=== PATIENT | female | born 1980 | race Hispanic/Latino ===

== ENCOUNTER 2020-12-06 04:10 | Emergency (ER) | payer SELFPAY ==
[2020-12-06 04:42] LABS: Absolute Lymphocytes (CBC) 7.1 K/uL (0.7-4.9); Basophils % 0.5 % (0-1.3); Hematocrit 37.5 % (36.0-45.0); Lymphocytes % 59.3 % (15.3-44.8); MPV 9.3 fL (7.6-11.3); RBC Red Blood Cell Count 3.92 M/uL (3.86-4.86)
[2020-12-06] MEDS ORDERED: TETANUS & DIPHTHERIA TOX,ADULT 0.5 ML VIAL ONE (04:50)
[2020-12-06] MEDS ORDERED: MORPHINE 4 MG/ML SYR ONE (04:50)
[2020-12-06] MEDS ORDERED: CEFAZOLIN/SWI 1gm 2 GM/20 ML SYR ONE (04:50)
[2020-12-06] MEDS ORDERED: ONDANSETRON 4 MG/2 ML VIAL ONE (04:50)
[2020-12-06 04:52] LABS: Potassium 3.3 mmol/L (3.5-5.1)
[2020-12-06 05:20] LABS: Blood Morphology Comment NOT SEEN (NOT SEEN); Platelet Estimate ADEQ
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
[2020-12-06 07:41] VITALS: TEMP 98.1; O2SAT 98
[2020-12-06 07:43] VITALS: BP 119/69
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
== END 2020-12-06 07:37 | disposition short-term general hospital (02) ==
LOC: EDBD 04:10 → EDSEX 04:10 → ER 04:10
DX: S01.80XA Unspecified open wound of other part of head, initial encounter (principal); S11.90XA Unspecified open wound of unspecified part of neck, initial encounter; S41.101A Unspecified open wound of right upper arm, initial encounter; X94.0XXA Assault by shotgun, initial encounter; Y93.9 Activity, unspecified; Y92.89 Other specified places as the place of occurrence of the external cause; Z23 Encounter for immunization
CPT/HCPCS: 36415; 70450; 70487; 70498; 71260; 76377; 80048; 85025; 90471; 90714; 96365; 96375; 99285; J0690; J2405; Q9967

== ENCOUNTER 2024-04-23 13:28 | Emergency (ER) | payer BC ==
--- OUTSIDE RECORDS SUMMARY | 2024-04-23 13:32 | XMS REPORT | Continuity of Care Document ---
Author Name Unknown Address [address] [facility] [address] [place] [address] [facility] thconnect Address [address] [facility] [address] [place] [address] Care Team Providers Care Proof Technician Name Role Phone Janelle Sky Primary Care Physician [phone] Medications Ordered Medication Name Filled Medication Name Start Date Stop Date Current Medication? Ordering Clinician Indication Dosage Frequency Signature (SIG) Comments Components Source RINSE MOUTH WITH 15ML (1 CAPFUL) FOR 30 SECONDS IN MORNING AND EVENING AFTER BRUSHING, THEN SPIT 03-24 00:00: 00 Yes John Stephens TAKE 1 TABLET BY MOUTH EVERY 6 HOURS WITH FOOD 03-24 00:00: 00 Yes John Stephens TAKE 1 CAPSULE BY MOUTH THREE TIMES A DAY 03-24 00:00: 00 Yes John Stephens Vital Signs Vital Name Observation Time Observation Value Comments S guevara BP Systolic 2024-04-16 11:14:00 120 mm[Hg] Tio Stephens BP Diastolic 2024-04-16 11:14:00 79 mm[Hg] Prashanth Stephens Weight Measured 2024-04-16 11:14:00 164.40 pounds John Stephens Height Measured 2024-04-16 11:14:00 61.00 inches John Stephens Body Temperature 2024-04-16 11:14:00 98.20 degrees John Stephens Heart Rate 2024-04-16 11:14:00 86.00 /min Vianey Stephens Respiratory Rate 2024-04-16 11:14:00 16.00 /min John F Angelo Height Measured 2024-02-22 15:34:00 61.00 inches John F Angelo Body Temperature 2024-02-22 15:34:00 98.00 degrees John F Angelo Heart Rate 2024-02-22 15:34:00 87.00 /min Vianey en F Angelo Respiratory Rate 2024-02-22 15:34:00 19.00 /min John F Angelo BP Systolic 2024-02-22 15:34:00 122 mm[Hg] Step hen F Angelo BP Diastolic 2024-02-22 15:34:00 79 mm[Hg] Prashanth phen F Angelo Weight Measured 2024-02-22 15:34:00 162.60 pounds John F Angelo BP Systolic 2023-09-09 14:37:00 126 mm[Hg] Step hen F Angelo BP Diastolic 2023-09-09 14:37:00 64 mm[Hg] Prashanth phen F Angelo Weight Measured 2023-09-09 14:37:00 157.40 pounds John F Angelo Height Measured 2023-09-09 14:37:00 61.00 inches John F Angelo Body Temperature 2023-09-09 14:37:00 98.40 degrees John F Angelo Heart Rate 2023-09-09 14:37:00 83.00 /min Vianey en F Angelo Respiratory Rate 2023-09-09 14:37:00 19.00 /min John F Angelo Respiratory Rate 2023-07-29 14:01:00 John F Angelo BP Systolic 2023-07-29 14:01:00 121 mm[Hg] Step hen F Angelo BP Diastolic 2023-07-29 14:01:00 77 mm[Hg] Prashanth phen F Angelo Weight Measured 2023-07-29 14:01:00 156.80 pounds John F Angelo Height Measured 2023-07-29 14:01:00 61.00 inches John F Angelo Body Temperature 2023-07-29 14:01:00 97.30 degrees John F Angelo Heart Rate 2023-07-29 14:01:00 74.00 /min Vianey en F Angelo BP Systolic 2023-06-03 17:00:00 116 mm[Hg] Step hen F Angelo BP Diastolic 2023-06-03 17:00:00 76 mm[Hg] Prashanth phen F Angelo Weight Measured 2023-06-03 17:00:00 154.00 pounds John F Angelo Height Measured 2023-06-03 17:00:00 61.00 inches John F Angelo Body Temperature 2023-06-03 17:00:00 98.20 degrees John F Angelo Heart Rate 2023-06-03 17:00:00 74.00 /min Vianey en F Angelo Respiratory Rate 2023-06-03 17:00:00 18.00 /min John F Angelo BP Systolic 2022-04-24 11:06:00 121 mm[Hg] Step hen F Angelo BP Diastolic 2022-04-24 11:06:00 84 mm[Hg] Prashanth phen F Angelo Weight Measured 2022-04-24 11:06:00 157.60 pounds John F Angelo Height Measured 2022-04-24 11:06:00 61.00 inches John F Angelo Body Temperature 2022-04-24 11:06:00 98.10 degrees John F Angelo Heart Rate 2022-04-24 11:06:00 85.00 /min Vianey en F Angelo Respiratory Rate 2022-04-24 11:06:00 18.00 /min John F Angelo BP Systolic 2022-02-10 08:42:00 133 mm[Hg] Step hen F Angelo BP Diastolic 2022-02-10 08:42:00 85 mm[Hg] Prashanth phen F Angelo Weight Measured 2022-02-10 08:42:00 156.80 pounds John F Angelo Height Measured 2022-02-10 08:42:00 61.00 inches John F Angelo Body Temperature 2022-02-10 08:42:00 98.40 degrees John F Angelo Heart Rate 2022-02-10 08:42:00 82.00 /min Vianey en F Angelo Respiratory Rate 2022-02-10 08:42:00 16.00 /min John F Angelo BP Systolic 2022-01-15 10:06:00 126 mm[Hg] Step hen F Angelo BP Diastolic 2022-01-15 10:06:00 85 mm[Hg] Prashanth phen F Angelo Weight Measured 2022-01-15 10:06:00 152.60 pounds John F Angelo Height Measured 2022-01-15 10:06:00 61.00 inches John Stephens Body Temperature 2022-01-15 10:06:00 98.40 degrees John Stephens Heart Rate 2022-01-15 10:06:00 78.00 /min Vianey Stephens Respiratory Rate 2022-01-15 10:06:00 16.00 /min John Stephens Encounters Start Date/Time End Date/Time Encounter Type Admission Type Attending [facility] Care Department Encounter ID Source 2024-04-16 11:07:21 2024-04-16 11:07:21 Outpatient [facility]FA [facility] [id number] John Stephens 2024-04-16 00:00:00 2024-04-16 00:00:00 Outpatient Visit [facility] [id number] John Stephens 2024-02-22 15:21:37 2024-02-22 15:21:37 Outpatient [facility] [id number] John Stephens 2024-02-22 00:00:00 2024-02-22 00:00:00 Outpatient Visit [facility] [id number] John Stephens 2023-09-09 14:31:10 2023-09-09 14:31:10 Outpatient [facility] [id number] John Stephens 2023-07-29 15:24:12 2023-07-29 15:24:12 Outpatient [facility] [id number] John Stephens 2023-06-03 16:50:39 2023-06-03 16:50:39 Outpatient [facility] [id number] John Stephens Results Test Description Test Time Test Comments Results Result Co mments Source HIV 1/2 4TH GEN, RFLX [id number] 05:19:16* Test Item Value Reference Range Interpretation Comme nts HIV 1/2 4TH GEN, RFLX CONF ( test code = 3514) NON-REACTIVE NON-REACTIVE HEPATITIS PANEL, [id number] 05:19:16* Test Item Value Reference Range Interpretation Comme nts HEPATITIS A IgM (test code = 33656) NON-REACTIVE NON-REACTIVE HEPATITIS B CORE IgM (test code = 4644) NON-REACTIVE NON-REACTIVE HEPATITIS B SURF AG (test code = 2739) NON-REACTIVE NON-REACTIVE HEPATITIS C ANTIBODY (test code = 4675) NON-REACTIVE NON-REACTIVE INTERPRETATION HEPATITIS A: (test code = 2552) (NOTE) Hepatitis A serology shows no evidence of acute hepatitis A. INTERPRETATION HEPATITIS B: (test code = 96730) (NOTE) Hepatitis B serology shows no evidence of acute hepatitis B andno indication of exposure to hepatitis B virus in the previous se eight months. INTERPRETATION HEPATITIS C: (test code = 94610) (NOTE) Hepatitis C serology shows no evidence of exposure to hepatitisC virus at this time. It can take up to 12 months after exposure tothe hepatitis C virus for antibodies to become detectable in the blood in certain patients. RPR REFLEX TO T. PALLIDUM - [id number] 04:41:52* Test Item Value Reference Range Interpretation Comme nts RPR (test code = 43563) NON-REACTIVE NON-REACTIVE RPR TITER (test code = 3500) NOT INDIC. TITER NOT INDIC. ACUTE HEPATITIS [id number] 00:00:00* Test Item Value Reference Range Interpretation Comme nts HEPATITIS A IgM (test code = 03767) NON-REACTIVE HEPATITIS B CORE IgM (test c ode = 4644) NON-REACTIVE HEPATITIS B SURF AG (test co de = 2739) NON-REACTIVE HEPATITIS C ANTIBODY (test c ode = 4675) NON-REACTIVE INTERPRETATION HEPATITIS A: (test code = 2552) (NOTE) INTERPRETATION HEPATITIS B: (test code = 64226) (NOTE) INTERPRETATION HEPATITIS C: (test code = 17120) (NOTE) John StephensCT/NG, NAAT, [id number] 00:00:00* Test Item Value Reference Range Interpretation Comme nts CHLAMYDIA, NAAT, URINE (test code = 66016) NEGATIVE GONORRHEA, NAAT, URINE (test code = 21762) NEGATIVE John StephensHIV 1/2 4TH GEN, RFLX [id number] 00:00:00* Test Item Value Reference Range Interpretation Comme nts HIV 1/2 4TH GEN, RFLX CONF ( test code = 3514) NON-REACTIVE John F AustinRPR REFLEX TO T. PALLIDUM - [id number] 00:00:00* Test Item Value Reference Range Interpretation Comme nts RPR (test code = 87464) NON-REACTIVE RPR TITER (test code = 3500) NOT INDIC. TITER John Gay AustinRPR REFLEX TO T. PALLIDUM - [id number] 00:00:00* Test Item Value Reference Range Interpretation Comme nts RPR (test code = 73490) NON-REACTIVE RPR TITER (test code = 3500) NOT INDIC. TITER John StephensACUTE HEPATITIS [id number] 00:00:00* Test Item Value Reference Range Interpretation Comme nts HEPATITIS A IgM (test code = 35207) NON-REACTIVE HEPATITIS B CORE IgM (test c ode = 4644) NON-REACTIVE HEPATITIS B SURF AG (test co de = 2739) NON-REACTIVE HEPATITIS C ANTIBODY (test c ode = 4675) NON-REACTIVE INTERPRETATION HEPATITIS A: (test code = 2552) (NOTE) INTERPRETATION HEPATITIS B: (test code = 83239) (NOTE) INTERPRETATION HEPATITIS C: (test code = 99566) (NOTE) John StephensCT/NG, TMA, [id number] 00:00:00* Test Item Value Reference Range Interpretation Comme nts CHLAMYDIA, NAAT, URINE (test code = 01458) NEGATIVE GONORRHEA, NAAT, URINE (test code = 72340) NEGATIVE John StephensHIV 1/2 4TH GEN, RFLX [id number] 00:00:00* Test Item Value Reference Range Interpretation Comme nts HIV 1/2 4TH GEN, RFLX CONF ( test code = 3514) NON-REACTIVE John Gay AustinRPR REFLEX TO T. PALLIDUM - [id number] 00:00:00* Test Item Value Reference Range Interpretation Comme nts RPR (test code = 12538) NON-REACTIVE RPR TITER (test code = 3500) NOT INDIC. TITER John StephensACUTE HEPATITIS [id number] 00:00:00* Test Item Value Reference Range Interpretation Comme nts HEPATITIS A IgM (test code = 40485) NON-REACTIVE HEPATITIS B CORE IgM (test c ode = 4644) NON-REACTIVE HEPATITIS B SURF AG (test co de = 2739) NON-REACTIVE HEPATITIS C ANTIBODY (test c ode = 4675) NON-REACTIVE INTERPRETATION HEPATITIS A: (test code = 2552) (NOTE) INTERPRETATION HEPATITIS B: (test code = 86581) (NOTE) INTERPRETATION HEPATITIS C: (test code = 02102) (NOTE) John Price/NG, TMA, [id number] 00:00:00* Test Item Value Reference Range Interpretation Comme nts CHLAMYDIA, NAAT, URINE (test code = 87283) NEGATIVE GONORRHEA, NAAT, URINE (test code = 85970) NEGATIVE John StephensHIV 1/2 4TH GEN, RFLX [id number] 00:00:00* Test Item Value Reference Range Interpretation Comme nts HIV 1/2 4TH GEN, RFLX CONF ( test code = 3514) NON-REACTIVE John Pineda Multi-cncr(5+35)2023-08-08 00:00:00* Test Item Value Reference Range Interpretation Comme nts Report Summary (test code = REPORT_SUMMARY) NEGATIVE Footnotes (test code = FOOTNOTES) See Notes PDF Report (test code = EMBEDDED_PDF) PDF John Pineda Multi-cncr(5+35)2023-08-08 00:00:00* Test Item Value Reference Range Interpretation Comme nts Report Summary (test code = REPORT_SUMMARY) NEGATIVE Footnotes (test code = FOOTNOTES) See Notes PDF Report (test code = EMBEDDED_PDF) PDF John StephensCOMPREHENSIVE METABOLIC [id number] 06:07:58* Test Item Value Reference Range Interpretation Comme nts GLUCOSE (test code = 2217) 91 MG/DL 70-99 BUN (test code = 2208) 14 MG/DL 6-20 CREATININE (test code = 2214) 0.81 MG/DL 0.60-1.30 eGFR (2020 CKD-EPI) (test code = 10302) 93 ML/MIN/1.73 >60 CALC BUN/CREAT (test code = 2235) 17 RATIO 6-28 SODIUM (test code = 223) 138 MEQ/L 133-146 POTASSIUM (test code = 2228) 3.7 MEQ/L 3.5-5.4 CHLORIDE (test code = 2215) 105 MEQ/L 95-107 CARBON DIOXIDE (test code = 2206) 23 MEQ/L 19-31 CALCIUM (test code = 2208) 9.0 MG/DL 8.5-10.5 PROTEIN, TOTAL (test code = 2228) 7.0 G/DL 6.1-8.3 ALBUMIN (test code = 1) 4.7 G/DL 3.5-5.2 CALC GLOBULIN (test code = 0) 2.3 G/DL 1.9-3.7 CALC A/G RATIO (test code = 2233) 2.0 RATIO 1.0-2.6 BILIRUBIN, TOTAL (test code = 2206) 0.5 MG/DL See_Comment [Automated me ssage] The system which generated this result transmitted reference range: <=1.2. The reference range was not used to interpret this result as normal/abnormal. ALKALINE PHOSPHATASE (test code = 2203) 50 U/L 40-113 AST (test code = 2217) 35 U/L 9-40 ALT (test code = 2218) 53 U/L 5-40 H LIPID [id number] 06:07:58* Test Item Value Reference Range Interpretation Comme nts CHOLESTEROL (test code = 0) 194 MG/DL <200 TRIGLYCERIDES (test code = 2) 93 MG/DL <150 HDL CHOLESTEROL (test code = 0) 87 MG/DL >39 CALC LDL CHOL (test code = 2236) 88 MG/DL <100 NOTE: CALCULATED LDL IS BASED ON JULISSA-LEVIN METHOD WHICHINCLUDES ADJUSTABLE TRIGLYCERIDE:VLDL CHOLESTEROL RATIO.THIS FACTOR VARIES BY MEASURED TRIGLYCERIDE AND NON-HDLCHOLESTEROL CONCENTRATIONS WITH INCREASED CALCULATED LDL SEENIN HIGHER TRIGLYCERIDE OR LOWER NON-HDL SPECIMENS. FOR MOREINFORMATION, SEE CLIENT ANNOUNCEMENT AT [email or web address] RISK RATIO LDL/HDL (test code = 2237) 1.01 RATIO <3.22 UNLESS OTHERW ISE INDICATED, ALL TESTING PERFORMED AT [facility] [address] [place] [id number] EXTERNAL RELATIONS MANAGER: CHERYL GRAY M.D. CLIA NUMBER [id number] [place]. [id number] HEMOGLOBIN [id number] 03:16:33* Test Item Value Reference Range Interpretation Comme nts HEMOGLOBIN A1c (test code = 45279) 5.0 % 4.2-5.6 COMPREHENSIVE METABOLIC [id number] 00:00:00* Test Item Value Reference Range Interpretation Comme nts GLUCOSE (test code = 2217) 91 MG/DL BUN (test code = 2208) 14 MG/DL CREATININE (test code = 2214) 0.81 MG/DL eGFR (2020 CKD-EPI) (test co de = 45155) 93 ML/MIN/1.73 CALC BUN/CREAT (test code = 2235) 17 RATIO SODIUM (test code = 2231) 138 MEQ/L POTASSIUM (test code = 2228) 3.7 MEQ/L CHLORIDE (test code = 2215) 105 MEQ/L CARBON DIOXIDE (test code = 2206) 23 MEQ/L CALCIUM (test code = 2209) 9.0 MG/DL PROTEIN, TOTAL (test code = 2229) 7.0 G/DL ALBUMIN (test code = 2201) 4.7 G/DL CALC GLOBULIN (test code = 2240) 2.3 G/DL CALC A/G RATIO (test code = 2234) 2.0 RATIO BILIRUBIN, TOTAL (test code = 2207) 0.5 MG/DL ALKALINE PHOSPHATASE (test code = 2204) 50 U/L AST (test code = 2218) 35 U/L ALT (test code = 2219) 53 U/L John StephensLIPID [id number] 00:00:00* Test Item Value Reference Range Interpretation Comme nts CHOLESTEROL (test code = 2210) 194 MG/DL TRIGLYCERIDES (test code = 2232) 93 MG/DL HDL CHOLESTEROL (test code = 2220) 87 MG/DL CALC LDL CHOL (test code = 2237) 88 MG/DL RISK RATIO LDL/HDL (test cod e = 2238) 1.01 RATIO John StephensHEMOGLOBIN [id number] 00:00:00* Test Item Value Reference Range Interpretation Comme nts HEMOGLOBIN A1c (test code = 35154) 5.0 % John StephensCOMPREHENSIVE METABOLIC [id number] 00:00:00* Test Item Value Reference Range Interpretation Comme nts GLUCOSE (test code = 2217) 91 MG/DL BUN (test code = 2208) 14 MG/DL CREATININE (test code = 2214) 0.81 MG/DL eGFR (2020 CKD-EPI) (test co de = 46212) 93 ML/MIN/1.73 CALC BUN/CREAT (test code = 2235) 17 RATIO SODIUM (test code = 2231) 138 MEQ/L POTASSIUM (test code = 2228) 3.7 MEQ/L CHLORIDE (test code = 2215) 105 MEQ/L CARBON DIOXIDE (test code = 2206) 23 MEQ/L CALCIUM (test code = 2209) 9.0 MG/DL PROTEIN, TOTAL (test code = 2229) 7.0 G/DL ALBUMIN (test code = 2201) 4.7 G/DL CALC GLOBULIN (test code = 2240) 2.3 G/DL CALC A/G RATIO (test code = 2234) 2.0 RATIO BILIRUBIN, TOTAL (test code = 2207) 0.5 MG/DL ALKALINE PHOSPHATASE (test code = 2204) 50 U/L AST (test code = 2218) 35 U/L ALT (test code = 2219) 53 U/L John StephensLIPID [id number] 00:00:00* Test Item Value Reference Range Interpretation Comme nts CHOLESTEROL (test code = 2210) 194 MG/DL TRIGLYCERIDES (test code = 2232) 93 MG/DL HDL CHOLESTEROL (test code = 2220) 87 MG/DL CALC LDL CHOL (test code = 2237) 88 MG/DL RISK RATIO LDL/HDL (test cod e = 2238) 1.01 RATIO John StephensHEMOGLOBIN [id number] 00:00:00* Test Item Value Reference Range Interpretation Comme nts HEMOGLOBIN A1c (test code = 80284) 5.0 % John StephensSCR MAMM BILATERAL JARROD CAD [id number] 11:07:51 Name: Amanda : 1980 Sex: F - SCR MAMM BILATERAL JARROD CAD DIGITALBILATERAL FIRST EVER DIGITAL SCREENING MAMMOGRAM 3D/2D WITH CAD: 05/16/2022LINICAL: Asymptomatic. Digitalbreast tomosynthesis was performed in addition to routine CC and MLO views. Current mammographic images were evaluated by [employer] Image[employer] CAD (computer-aided detection) software. No prior exams were available for comparison. The tissue of both breasts is heterogeneously dense. This may lower the sensitivity of mammography. There are benign calcifications in both breasts. No suspicious mass, architectural distortion, malignant type calcification, or lymph node abnormality detected. IMPRESSION: BENIGNThere is no mammographic evidence of malignancy. Resume annual screening mammography in one year. (05/17/2023) Rik Marie M.D. et/penrad:05/23/2022 11:07:51 Coiled Tubing Supervisor: Yaima Pathak MM, [facility] Mammographyletter sent: BIRADS 1-2 Normal Mammogram BI-RADS: 2 BenignPAP TEST, THINPREP, [id number] 12:56:42* Test Item Value Reference Range Interpretation Comme nts SOURCE: (test code = 8001) Cervical/Endoc ervical SLIDES: (test code = 8011) 1 LMP: (test code = 8021) 04/04/2022 SPECIMEN ADEQUACY: (test code = 44742) (NOTE) Satisfactory for evaluation. Endocervical cells/transformation zone component not identified. INTERPRETATION: (test code = 11018) NILM/NO EPITH. ABNORMALITY;SE E BELOW ---- NEGATIVE FOR INTRAEPITHELIAL LESION OR MALIGNANCY (NILM) - CANDY MAKER : (test code = 8101) [facility] LOCATION: (test code = 71813) (NOTE) Specimens proces sed and interpreted at [facility], [address] [place] [address], , CLIA: [id number] CPT: (test code = 8140) (NOTE) [address] UNLESS OTH ERWISE INDICATED, COMPUTER AIDED AND CANDY MAKER SCREENING PERFORMED. The Pap test is a screening test with an inherent, but low probability of error. Your patient should be reminded to consult you immediately if she experiences any suspicious signs or symptoms, regardless of her Pap test result. An alternate report format containing images or consolidated prior Pap history is available as applicable. PAP TEST, THINPREP, [id number] 00:00:00* Test Item Value Reference Range Interpretation Comme nts SOURCE: (test code = 8001) Cervical/Endocervical SLIDES: (test code = 8011) 1 LMP: (test code = 8021) 04/04/2022 SPECIMEN ADEQUACY: (test code = 56728) (NOTE) INTERPRETATION: (test code = 97616) NILM/NO EPITH. ABNORMALITY;SEE BELOW CANDY MAKER: (test code = 8101) [facility] LOCATION: (test code = 34747) (NOTE) CPT: (test code = 8140) (NOTE) John StephensPAP TEST, THINPREP, [id number] 00:00:00* Test Item Value Reference Range Interpretation Comme nts SOURCE: (test code = 8001) Cervical/Endocervical SLIDES: (test code = 8011) 1 LMP: (test code = 8021) 04/04/2022 SPECIMEN ADEQUACY: (test code = 52469) (NOTE) INTERPRETATION: (test code = 99013) NILM/NO EPITH. ABNORMALITY;SEE BELOW CANDY MAKER: (test code = 8101) [facility] LOCATION: (test code = 97937) (NOTE) CPT: (test code = 8140) (NOTE) John Gay AngeloCT/NG, NAAT, [id number] 18:31:17* Test Item Value Reference Range Interpretation Comme nts GONORRHEA, NAAT (test code = 22041) NEGATIVE NEGATIVE IMPORTANT NO IMAN: SEE ANNOUNCEMENT AT [email or web address] Note: Assay methodology is nucleic acid amplification by flat folding machine operator mediated amplification (TMA) utilizing the Aptima Combo 2 Assay. CHLAMYDIA, NAAT (test code = 06439) NEGATIVE NEGATIVE IMPORTANT NO IMAN: SEE ANNOUNCEMENT AT [email or web address] Note: Assay methodology is nucleic acid amplification by flat folding machine operator mediated amplification (TMA) utilizing the Aptima Combo 2 Assay. HPV HIGH RISK WITH GENOTYPE, [id number] 14:47:45* Test Item Value Reference Range Interpretation Comme nts HPV HIGH RISK INTERP (test code = 70253) NEGATIVE NEGATIVE HPV 16 (test code = 12638) NEGATIVE HPV 18 (test code = 98679) NEGATIVE HPV, HR, OTHER GENOTYPES (test code = 04859) NEGATIVE Testing methodol ogy is real-time PCR utilizing hydrolysis probes with the Lubna Penny 4800 system. The test individually detects genotypes 16 and 18, as well as the other 12 high risk types (31,33,35,39,45,51,52,56 ,58,59,66,68). The expected result is negative. A negative result does not rule out the presence of HPV not included in the genotype set, a low level of infection or specimen sampling error. UNLESS OTHERWISE INDICATED, ALL TESTING PERFORMED [facility] [address] [place] [address] EXTERNAL RELATIONS MANAGER: MARIA CASTRO M.D. CLIA NUMBER [id number] [place] [id number] VAGINAL PATHOGENS DNA [id number] 13:21:53* Test Item Value Reference Range Interpretation Comme nts SANDIE SPECIES (test code = 79369) NEGATIVE NEGATIVE G. VAGINALIS (test code = 12427) NEGATIVE NEGATIVE T. VAGINALIS (test code = 39686) NEGATIVE NEGATIVE UNLESS OTHERWISE INDICATED, ALL TESTING PERFORMED [facility] [address] [place] [address] EXTERNAL RELATIONS MANAGER: MARIA CASTRO M.D. CLIA NUMBER [id number] [place]. [id number] 03:55:39* Test Item Value Reference Range Interpretation Comme nts RPR RESULT (test code = 3501) NON-REACTIVE NON-REACTIVE RPR TITER (test code = 3500) NOT INDIC. TITER NOT INDIC. [facility]SH + LH [id number] 03:31:03* Test Item Value Reference Range Interpretation Comme [facility] FOLLICLE STIM HORMONE (test code = 2700) 2.8 IU/L SEE BELOW EXPEC TREVON VALUES FOR FSH FOR FEMALES >17 YEARS MALES FEMALES >=18 YEARS 1.5-12.4 IU/L FOLLICULAR 3.5-12.5 IU/L MID-CYCLE PEAK 4.7-21.5 IU/L LUTEAL PHASE 1.7-7.7 IU/L POSTMENOPAUSAL 25.8-134.8 IU/L LUTEINIZING HORMONE (test code = 2776) 2.3 IU/L SEE BELOW EXPEC TREVON VALUES FOR LH FOR FEMALES >17 YEARS MALES FEMALES >=18 YEARS 1.8-8.6 IU/L FOLLICULAR 2.4-12.6 IU/L MID-CYCLE PEAK 14.0-95.6 IU/L LUTEAL PHASE 1.0-11.4 IU/L POSTMENOPAUSAL 7.7-58.5 IU/L HIV 1/2 4TH GEN, RFLX [id number] 03:25:43* Test Item Value Reference Range Interpretation Comme [facility] HIV 1/2 4TH GEN, RFLX CONF ( test code = 3514) NON-REACTIVE NON-REACTIVE HEPATITIS PANEL, [id number] 03:25:43* Test Item Value Reference Range Interpretation Comme [facility] HEPATITIS A IgM (test code = 90733) NON-REACTIVE NON-REACTIVE HEPATITIS B CORE IgM (test code = 4644) NON-REACTIVE NON-REACTIVE HEPATITIS B SURF AG (test code = 2739) NON-REACTIVE NON-REACTIVE HEPATITIS C ANTIBODY (test code = 4675) NON-REACTIVE NON-REACTIVE INTERPRETATION HEPATITIS A: (test code = 2552) (NOTE) Hepatitis A serology shows no evidence of acute hepatitis A. INTERPRETATION HEPATITIS B: (test code = 39175) (NOTE) Hepatitis B serology shows no evidence of acute hepatitis B andno indication of exposure to hepatitis B virus in the previous se eight months. INTERPRETATION HEPATITIS C: (test code = 14370) (NOTE) Hepatitis C serology shows no evidence of exposure to hepatitisC virus at this time. It can take up to 12 months after exposure tothe hepatitis C virus for antibodies to become detectable in the blood in certain patients. HPV HIGH RISK WITH GENOTYPE, [id number] 00:00:00* Test Item Value Reference Range Interpretation Comme nts HPV HIGH RISK INTERP (test c ode = 96937) NEGATIVE HPV 16 (test code = 41000) NEGATIVE HPV 18 (test code = 28165) NEGATIVE HPV, HR, OTHER GENOTYPES (te st code = 02247) NEGATIVE John StephensACUTE HEPATITIS [id number] 00:00:00* Test Item Value Reference Range Interpretation Comme nts HEPATITIS A IgM (test code = 42537) NON-REACTIVE HEPATITIS B CORE IgM (test c ode = 4644) NON-REACTIVE HEPATITIS B SURF AG (test co de = 2739) NON-REACTIVE HEPATITIS C ANTIBODY (test c ode = 4675) NON-REACTIVE INTERPRETATION HEPATITIS A: (test code = 2552) (NOTE) INTERPRETATION HEPATITIS B: (test code = 39435) (NOTE) INTERPRETATION HEPATITIS C: (test code = 75281) (NOTE) John StephensGC AND CHLAMYDIA, AMPLIFIED, [id number] 00:00:00* Test Item Value Reference Range Interpretation Comme nts GONORRHEA, NAAT (test code = 51973) NEGATIVE CHLAMYDIA, NAAT (test code = 11837) NEGATIVE John StephensFSH + LH [id number] 00:00:00* Test Item Value Reference Range Interpretation Comme nts FOLLICLE STIM HORMONE (test code = 2700) 2.8 IU/L LUTEINIZING HORMONE (test co de = 2776) 2.3 IU/L John StephensVAGINAL PATHOGENS DNA [id number] 00:00:00* Test Item Value Reference Range Interpretation Comme nts SANDIE SPECIES (test code = 19028) NEGATIVE G. VAGINALIS (test code = 78739) NEGATIVE T. VAGINALIS (test code = 43187) NEGATIVE John StephensHIV AB/AG COMBO RFLX [id number] 00:00:00* Test Item Value Reference Range Interpretation Comme nts HIV 1/2 4TH GEN, RFLX CONF ( test code = 3514) NON-REACTIVE John StephensHPV HIGH RISK WITH GENOTYPE, [id number] 00:00:00* Test Item Value Reference Range Interpretation Comme tabby HPV HIGH RISK INTERP (test c ode = 93229) NEGATIVE HPV 16 (test code = 53335) NEGATIVE HPV 18 (test code = 78957) NEGATIVE HPV, HR, OTHER GENOTYPES (te st code = 71813) NEGATIVE John [id number] 00:00:00* Test Item Value Reference Range Interpretation Comme nts RPR RESULT (test code = 3501) NON-REACTIVE RPR TITER (test code = 3500) NOT INDIC. TITER John StephensACUTE HEPATITIS [id number] 00:00:00* Test Item Value Reference Range Interpretation Comme nts HEPATITIS A IgM (test code = 25404) NON-REACTIVE HEPATITIS B CORE IgM (test c ode = 4644) NON-REACTIVE HEPATITIS B SURF AG (test co de = 2739) NON-REACTIVE HEPATITIS C ANTIBODY (test c ode = 4675) NON-REACTIVE INTERPRETATION HEPATITIS A: (test code = 2552) (NOTE) INTERPRETATION HEPATITIS B: (test code = 04790) (NOTE) INTERPRETATION HEPATITIS C: (test code = 49648) (NOTE) John StephensGC AND CHLAMYDIA, AMPLIFIED, [id number] 00:00:00* Test Item Value Reference Range Interpretation Comme nts GONORRHEA, NAAT (test code = 44575) NEGATIVE CHLAMYDIA, NAAT (test code = 57424) NEGATIVE John StephensFSH + LH [id number] 00:00:00* Test Item Value Reference Range Interpretation Comme nts FOLLICLE STIM HORMONE (test code = 2700) 2.8 IU/L LUTEINIZING HORMONE (test co de = 2776) 2.3 IU/L John StephensVAGINAL PATHOGENS DNA [id number] 00:00:00* Test Item Value Reference Range Interpretation Comme tabby SANDIE SPECIES (test code = 83893) NEGATIVE G. VAGINALIS (test code = 77370) NEGATIVE T. VAGINALIS (test code = 64927) NEGATIVE John StephensHIV AB/AG COMBO RFLX [id number] 00:00:00* Test Item Value Reference Range Interpretation Comme nts HIV 1/2 4TH GEN, RFLX CONF ( test code = 3514) NON-REACTIVE John [id number] 00:00:00* Test Item Value Reference Range Interpretation Comme nts RPR RESULT (test code = 3501) NON-REACTIVE RPR TITER (test code = 3500) NOT INDIC. TITER John Gay AustinLIPID [id number] 05:59:01* Test Item Value Reference Range Interpretation Comme nts CHOLESTEROL (test code = 2210) 228 MG/DL <200 H TRIGLYCERIDES (test code = 2232) 178 MG/DL <150 H HDL CHOLESTEROL (test code = 2220) 75 MG/DL >39 CALC LDL CHOL (test code = 2237) 123 MG/DL <100 H NOTE: CALCULATED LDL IS BASED ON JULISSA-LEVIN METHOD WHICHINCLUDES ADJUSTABLE TRIGLYCERIDE:VLDL CHOLESTEROL RATIO.THIS FACTOR VARIES BY MEASURED TRIGLYCERIDE AND NON-HDLCHOLESTEROL CONCENTRATIONS WITH INCREASED CALCULATED LDL SEENIN HIGHER TRIGLYCERIDE OR LOWER NON-HDL SPECIMENS. FOR MOREINFORMATION, SEE CLIENT ANNOUNCEMENT AT [email or web address] RISK RATIO LDL/HDL (test code = 2238) 1.64 RATIO <3.22 COMPREHENSIVE METABOLIC [id number] 05:59:01* Test Item Value Reference Range Interpretation Comme nts GLUCOSE (test code = 2217) 107 MG/DL 70-99 H BUN (test code = 2208) 13 MG/DL 6-20 CREATININE (test code = 2214) 0.68 MG/DL 0.60-1.30 eGFR (2020 CKD-EPI) (test code = 66540) 112 ML/MIN/1.73 >60 CALC BUN/CREAT (test code = 2235) 19 RATIO 6-28 SODIUM (test code = 2231) 141 MEQ/L 133-146 POTASSIUM (test code = 2228) 4.4 MEQ/L 3.5-5.4 CHLORIDE (test code = 2215) 102 MEQ/L 95-107 CARBON DIOXIDE (test code = 2206) 22 MEQ/L 19-31 CALCIUM (test code = 2209) 9.8 MG/DL 8.5-10.5 PROTEIN, TOTAL (test code = 222) 8.3 G/DL 6.1-8.3 ALBUMIN (test code = 220) 5.2 G/DL 3.5-5.2 CALC GLOBULIN (test code = 2240) 3.1 G/DL 1.9-3.7 CALC A/G RATIO (test code = 2234) 1.7 RATIO 1.0-2.6 BILIRUBIN, TOTAL (test code = 2207) 1.0 MG/DL See_Comment [Automated me ssage] The system which generated this result transmitted reference range: <=1.2. The reference range was not used to interpret this result as normal/abnormal. ALKALINE PHOSPHATASE (test code = 2203) 61 U/L 40-113 AST (test code = 2218) 44 U/L 9-40 H ALT (test code = 2219) 68 U/L 5-40 H UNLESS OTHERWISE INDICATED, ALL TESTING PERFORMED [facility] [employer] [address] [place] [address] EXTERNAL RELATIONS MANAGER: MARIA CASTRO M.D. CLIA NUMBER [id number] [place] [place]. [id number] HEMOGLOBIN [id number] 04:03:58* Test Item Value Reference Range Interpretation Comme nts HEMOGLOBIN A1c (test code = 38555) 5.4 % 4.2-5.6 COMPREHENSIVE METABOLIC [id number] 00:00:00* Test Item Value Reference Range Interpretation Comme nts GLUCOSE (test code = 2217) 107 MG/DL BUN (test code = 8) 13 MG/DL CREATININE (test code = 2214) 0.68 MG/DL eGFR (2020 CKD-EPI) (test code = 96831) 112 ML/MIN/1.73 CALC BUN/CREAT (test code = 2235) 19 RATIO SODIUM (test code = 2231) 141 MEQ/L POTASSIUM (test code = 2228) 4.4 MEQ/L CHLORIDE (test code = 2215) 102 MEQ/L CARBON DIOXIDE (test code = 2206) 22 MEQ/L CALCIUM (test code = 2209) 9.8 MG/DL PROTEIN, TOTAL (test code = 2229) 8.3 G/DL ALBUMIN (test code = 2201) 5.2 G/DL CALC GLOBULIN (test code = 2240) 3.1 G/DL CALC A/G RATIO (test code = 2234) 1.7 RATIO BILIRUBIN, TOTAL (test code = 2207) 1.0 MG/DL ALKALINE PHOSPHATASE (test code = 4) 61 U/L AST (test code = 2218) 44 U/L ALT (test code = 2219) 68 U/L John StephensHEMOGLOBIN [id number] 00:00:00* Test Item Value Reference Range Interpretation Comme tabby HEMOGLOBIN A1c (test code = 90263) 5.4 % John Gay AustinLIPID [id number] 00:00:00* Test Item Value Reference Range Interpretation Comme nts CHOLESTEROL (test code = 2210) 228 MG/DL TRIGLYCERIDES (test code = 2232) 178 MG/DL HDL CHOLESTEROL (test code = 2220) 75 MG/DL CALC LDL CHOL (test code = 2237) 123 MG/DL RISK RATIO LDL/HDL (test cod e = 2238) 1.64 RATIO John StephensCOMPREHENSIVE METABOLIC [id number] 00:00:00* Test Item Value Reference Range Interpretation Comme nts GLUCOSE (test code = 2217) 107 MG/DL BUN (test code = 2208) 13 MG/DL CREATININE (test code = 2214) 0.68 MG/DL eGFR (2020 CKD-EPI) (test code = 61903) 112 ML/MIN/1.73 CALC BUN/CREAT (test code = 2235) 19 RATIO SODIUM (test code = 2231) 141 MEQ/L POTASSIUM (test code = 2228) 4.4 MEQ/L CHLORIDE (test code = 2215) 102 MEQ/L CARBON DIOXIDE (test code = 2206) 22 MEQ/L CALCIUM (test code = 2209) 9.8 MG/DL PROTEIN, TOTAL (test code = 2229) 8.3 G/DL ALBUMIN (test code = 2201) 5.2 G/DL CALC GLOBULIN (test code = 2240) 3.1 G/DL CALC A/G RATIO (test code = 2234) 1.7 RATIO BILIRUBIN, TOTAL (test code = 2207) 1.0 MG/DL ALKALINE PHOSPHATASE (test code = 2204) 61 U/L AST (test code = 2218) 44 U/L ALT (test code = 2219) 68 U/L John StephensHEMOGLOBIN [id number] 00:00:00* Test Item Value Reference Range Interpretation Comme nts HEMOGLOBIN A1c (test code = 27522) 5.4 % John Gay AustinLIPID [id number] 00:00:00* Test Item Value Reference Range Interpretation Comme nts CHOLESTEROL (test code = 2210) 228 MG/DL TRIGLYCERIDES (test code = 2232) 178 MG/DL HDL CHOLESTEROL (test code = 2220) 75 MG/DL CALC LDL CHOL (test code = 2237) 123 MG/DL RISK RATIO LDL/HDL (test cod e = 2238) 1.64 RATIO John Gay Angelo Notes Date/Time Note Provider Source 2024-04-16 00:00:00 [id number] [id number] T00:00:00+ + +| Plan Activity | Plan Date |+ =========+ +| weight and height disproportionate | 2022-01-15 || Overweight | || Therapeutic lifestyle changes required | || RTC for MATTHEW DOWELL | |+ ---------+ +| Daily activity recommended. | 2022-02-10 |+ ---------+ +| Recommend healthy eating with foods from a variety of food groups, appropriate | 2022-02-10 || portion sizes, and few sugary snacks/drinks. | |+ ---------+ +| lipid panel pending | 2022-01-15 |+ ---------+ +| A1C and cmp pending | 2022-01-15 |+ ---------+ +| weight and height disproportionate | 2022-02-10 || Overweight | || Therapeutic lifestyle changes required | |+ ---------+ +| Patient education | 2022-02-10 || ASCVD risk 1.9%-0.9% | |+ ---------+ +| RTO CMP 30 days | 2022-02-10 |+ ---------+ +| reviewed and discussed | 2022-02-10 |+ ---------+ +| Wet mount and pap | 2022-04-24 || Referral for mammogram | || RTO in 1 year for [facility] | |+ ---------+ +| screening mammogram | 2022-04-24 || CBE- normal | || MA was present as staff nurse midwife | |+ ---------+ +| FSH, LH | 2022-04-24 |+ ---------+ +| 1. Routine well adult visit | 2023-06-03 || 2. blood pressure, weight, height, and BMI calculated | || 3. Dietary: Recommend 3 meals a day that include lean protein, at least 5 | || servings of fruits and vegetables, whole grains, and at least 3 servings of | || dairy products or fortified soy milk. Limit food and drinks that are high in | || fat, salt, and sugar. | || 4. Physical activity: aim for 150 minutes of moderate physical activity (like | || fast walking) or 75 minutes of vigorous activity (like running) weekly | || 5. Vaccination up to date | || 6. will need to pickup paperwork afterlabwork | |+ ---------+ +| BRCA GENETIC TESTING-go to [facility] | 2023-07-29 || Kimber will order kit with Ana | |+ ---------+ +| STD PANEL | 2023-09-09 || chlamydia/ GC. | || | || Sexual hygiene and use of condoms advised. | || The only way to avoid sexually transmitted diseases is to not have vaginal, | || anal, or oral sex. | || Be in a long-term mutually monogamous relationship with a partner who has been | || tested and has negative STD test results; | || Use latex condoms the right way every time you have sex. | |+ ---------+ +| STD panel ordered, pending results | 2023-09-09 |+ ---------+ +| OTC clotrimazole BID x 3 weeks, keep covered with guaze and stretch tape as | 2024-04-16 || this is contagious. practice good hand hygeine. If it becomes painful, or | || hardness develops under the area, come back. | |+ ---------+ +[id number] of TreatmentST[facility]|[id number] for patient [id number] Section NarrativeNARRATIVEFormatted C-CDA narrative textSFAStmaciel Perez [facility]2024-07-01T00:00:00 John Perez [facility] 2024-02-22 00:00:00 [id number]/UmdA uGKDLlNhI/zL/k3mJ [id number] T00:00:00+ + +| Plan Activity | Plan Date |+ =========+ +| weight and height disproportionate | 2022-01-15 || Overweight | || Therapeutic lifestyle changes required | || RTC for MATTHEW DOWELL | |+ ---------+ +| Daily activity recommended. | 2022-02-10 |+ ---------+ +| Recommend healthy eating with foods from a variety of food groups, appropriate | 2022-02-10 || portion sizes, and few sugary snacks/drinks. | |+ ---------+ +| lipid panel pending | 2022-01-15 |+ ---------+ +| A1C and cmp pending | 2022-01-15 |+ ---------+ +| weight and height disproportionate | 2022-02-10 || Overweight | || Therapeutic lifestyle changes required | |+ ---------+ +| Patient education | 2022-02-10 || ASCVD risk 1.9%-0.9% | |+ ---------+ +| RTO CMP 30 days | 2022-02-10 |+ ---------+ +| reviewed and discussed | 2022-02-10 |+ ---------+ +| Wet mount and pap | 2022-04-24 || Referral for mammogram | || RTO in 1 year for WWE | |+ ---------+ +| screening mammogram | 2022-04-24 || CBE- normal | || MA was present as staff nurse midwife | |+ ---------+ +| FSH, LH | 2022-04-24 |+ ---------+ +| 1. Routine well adult visit | 2023-06-03 || 2. blood pressure, weight, height, and BMI calculated | || 3. Dietary: Recommend 3 meals a day that include lean protein, at least 5 | || servings of fruits and vegetables, whole grains, and at least 3 servings of | || dairy products or fortified soy milk. Limit food and drinks that are high in | || fat, salt, and sugar. | || 4. Physical activity: aim for 150 minutes of moderate physical activity (like | || fast walking) or 75 minutes of vigorous activity (like running) weekly | || 5. Vaccination up to date | || 6. will need to pickup paperwork afterlabwork | |+ ---------+ +| BRCA GENETIC TESTING-go to [facility] | 2023-07-29 || Kimber will order kit with [facility] | |+ ---------+ +| STD PANEL | 2023-09-09 || chlamydia/ GC. | || | || Sexual hygiene and use of condoms advised. | || The only way to avoid sexually transmitted diseases is to not have vaginal, | || anal, or oral sex. | || Be in a long-term mutually monogamous relationship with a partner who has been | || tested and has negative STD test results; | || Use latex condoms the right way every time you have sex. | |+ ---------+ +| STD panel ordered, pending results | 2023-09-09 |+ ---------+ +[id number] of TreatmentLNCOVENANT MEDICAL CENTER PLANTXTSFA|[id number] for patient r[id number] Section NarrativeNARRATIVEFormatted C-CDA narrative textSFAStmaciel Perez [facility]2024-05-06T00:00:00 John Perez [facility]"
--- NOTE | 2024-04-23 13:47 | EDPHYS ---
Physician Documentation [facility] Name: Krupa Farmer Age: 44 yrs Sex: Female : 1980 Arrival Date: 04/23/2024 Time: 13:28 Bed 9 Private MD: ED Physician All Dawn HPI: 04/23 15:19 This 44 yrs old Female presents to ER via Ambulatory with complaints of Rash. kb 15:19 Pt is a 44 year old female who presents for rash to right medial thigh that started 2 kb weeks ago. States she was seen at the [facility] and told it was ringworm. States she has been using the OTC cream without relief. States the original rash has been draining fluid and she now has a diffuse rash. Reports itching. Denies fever. . BIOLOGICAL SCIENCE AIDE: 13:49 LMP N/A - , Not mb9 Historical: - Allergies: 13:47 No Known Allergies; mb9 - Home Meds: 13:47 None [Active]; mb9 - PMHx: 13:47 None; mb9 - PSHx: 13:47 chin; mb9 - Immunization history:: Adult Immunizations up to date. - Infectious Disease History:: Denies. - Social history:: Smoking status: Patient denies any tobacco usage or history of. ROS: 15:17 Constitutional: As per HPI kb Exam: 15:17 Constitutional: This is a well developed, well nourished patient who is awake, alert, kb and in no acute distress. Head/Face: Normocephalic, atraumatic. ENT: Moist Mucous membranes Cardiovascular: Regular rate Respiratory: Respirations even and unlabored. No increased work of breathing. Talking in full sentences Abdomen/GI: Soft, non-tender. No distention MS/ Extremity: Pulses equal, no cyanosis. Neurovascular intact. Full, normal range of motion. Neuro: Awake and alert, GCS 15, oriented to person, place, time, and situation. Moves all extremities. Normal gait. 15:17 Skin: diffuse nonspecific rash; local erythema with drainage to medial right thigh. Vital Signs: 13:46 BP 155 / 98; Pulse 84; Resp 18; Temp 98.2(O); Pulse Ox 100% ; Weight 72.57 kg; Height 5 mb9 ft. 1 in. ; Pain 0/10; 13:46 Body Mass Index 30.23 (72.57 kg, 154.94 cm) mb9 13:46 Pain Scale: Adult mb9 MDM: 13:37 Patient medically screened. kb 15:18 Differential diagnosis: impetigo, allergic reaction, parasite infection, abscess, kb cellulitis. Data reviewed: vital signs, nurses notes. Test considered but Not performed: Labs: cbc, cmp considered but pt is afebrile, nontoxic in appearance. Counseling: I had a detailed discussion with the patient and/or guardian regarding the historical points, exam findings, and any diagnostic results supporting the discharge/admit diagnosis, the need for outpatient follow up, a family practitioner, to return to the emergency department if symptoms worsen or persist or if there are any questions or concerns that arise at home. Administered Medications: 13:55 Drug: Trimethoprim-Sulfamethoxazole PO (160 mg-800 mg (DS) 1 tablet PO once Route: PO; mb9 13:56 Follow up: Response: No adverse reaction mb9 13:55 Drug: Famotidine PO 20 mg PO once Route: PO; mb9 13:56 Follow up: Response: No adverse reaction mb9 Disposition: 19:03 Co-signature as Attending Physician, All Dawn MD I reviewed the patient's care rn provided by the Advanced Practice Provider and agree with the diagnosis and treatment plan. Disposition Summary: 04/23/24 13:46 Discharge Ordered Notes: Location: Home kb Condition: Stable kb Diagnosis - Rash and other nonspecific skin eruption kb - Local infection of the skin and subcutaneous tissue, unspecified kb Followup: kb - With: Emergency Department - When: As needed - Reason: Worsening of condition Followup: kb - With: Private Physician - When: 2 - 3 days - Reason: Recheck today's complaints, Continuance of care, Re-evaluation by your physician Discharge Instructions: - Discharge Summary Sheet kb - Cellulitis, Adult, Zclt-yn-Laiy kb - Rash, Adult, Jntr-wu-Ituo kb Forms: - Medication Reconciliation Form kb - Antibiotic Education kb - Prescription Opioid Use kb - Patient Portal Instructions kb - Leadership Thank You Letter kb - Work release form mb9 Prescriptions: - Pepcid 20 mg Oral Tablet - take 1 tablet ORAL route every 12 hours for 5 days; 10 tablet; Refills: 0, kb Product Selection Permitted - Bactrim DS 800-160 mg Oral Tablet - take 1 tablet ORAL route every 12 hours for 10 days; 20 tablet; Refills: 0, kb Product Selection Permitted Signatures: Ivy Sampson, HILARIO WARNER-All Duque MD MD rn Wilkerson, Astrid Underwood RN RN mb9
--- NOTE | 2024-04-23 13:47 | ER ---
Nurse's Notes [facility] Name: Krupa Farmer Age: 44 yrs Sex: Female : 1980 Arrival Date: 04/23/2024 Time: 13:28 Bed 9 Private MD: Diagnosis: Rash and other nonspecific skin eruption;Local infection of the skin and subcutaneous tissue, unspecified Presentation: 04/23 13:46 Chief complaint: Patient states: "I've had a rash on my right thigh for a week now. mb9 It's not getting better.". Coronavirus screen: Vaccine status: Patient reports being unvaccinated. Ebola Screen: No symptoms or risks identified at this time. Initial Sepsis Screen: Does the patient meet any 2 criteria? No. Patient's initial sepsis screen is negative. Does the patient have a suspected source of infection? No. Patient's initial sepsis screen is negative. Risk Assessment: Do you want to hurt yourself or someone else? Patient reports no desire to harm self or others. Onset of symptoms was April 23, 2024. 13:46 Method Of Arrival: Ambulatory 9 13:46 Acuity: JAIMEE 4 mb9 Triage Assessment: 13:48 General: Appears in no apparent distress. Behavior is calm, cooperative. Pain: Denies mb9 pain. EENT: No signs and/or symptoms were reported regarding the EENT system. Neuro: Bryson Agitation-Sedation Scale (RASS): 0 - Alert and Calm Level of Consciousness is awake, alert, obeys commands, Oriented to person, place, time, situation, Appropriate for age. Cardiovascular: Patient's skin is warm and dry. Respiratory: Airway is patent Respiratory effort is even, unlabored, Respiratory pattern is regular, symmetrical. GI: No signs and/or symptoms were reported involving the gastrointestinal system. : No signs and/or symptoms were reported regarding the genitourinary system. Derm: Rash noted that is red, raised, on right leg. Musculoskeletal: Range of motion: intact in all extremities, Swelling present in right leg. 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 - Infectious Disease History:: Denies. - Social history:: Smoking status: Patient denies any tobacco usage or history of. Screenin:48 [facility] ED Fall Risk Assessment (Adult) History of falling in the last 3 months, mb9 including since admission No falls in past 3 months (0 pts) Confusion or Disorientation No (0 pts) Intoxicated or Sedated No (0 pts) Impaired Gait No (0 pts) Mobility Assist Device Used No (0 pt) Altered Elimination No (0 pt) Score/Fall Risk Level 0 - 2 = Low Risk Oriented to surroundings, Maintained a safe environment, Educated pt \\T\\ family on fall prevention, incl call for assistance when getting out of bed. Abuse screen: Denies threats or abuse. Nutritional screening: No deficits noted. Tuberculosis screening: No symptoms or risk factors identified. Vital Signs: 13:46 BP 155 / 98; Pulse 84; Resp 18; Temp 98.2(O); Pulse Ox 100% ; Weight 72.57 kg; Height 5 mb9 ft. 1 in. ; Pain 0/10; 13:46 Body Mass Index 30.23 (72.57 kg, 154.94 cm) mb9 13:46 Pain Scale: Adult mb9 ED Course: 13:30 Patient arrived in ED. im 13:36 Ivy Sampson FNP-C is PHCP. kb 13:36 All Dawn MD is Attending Physician. kb 13:42 Astrid Bryan RN is Primary Nurse. mb9 13:42 Arm band placed on. mb9 13:47 Triage completed. mb9 13:49 Placed in gown. Bed in low position. Call light in reach. Side rails up X 1. Provided mb9 Education on: press call light if needing anything. Client placed on continuous cardiac and pulse oximetry monitoring. NIBP monitoring applied. 13:49 No provider procedures requiring assistance completed. Patient did not have IV access mb9 during this emergency room visit. Administered Medications: 13:55 Drug: Trimethoprim-Sulfamethoxazole PO (160 mg-800 mg (DS) 1 tablet PO once Route: PO; mb9 13:56 Follow up: Response: No adverse reaction mb9 13:55 Drug: Famotidine PO 20 mg PO once Route: PO; mb9 13:56 Follow up: Response: No adverse reaction mb9 Medication: 13:49 VIS not applicable for this client. mb9 Outcome: 13:46 Discharge ordered by . fidelia 13:56 Discharged to home ambulatory, mb9 13:56 Condition: stable 13:56 Discharge instructions given to patient, Instructed on discharge instructions, follow up and referral plans. Demonstrated understanding of instructions, follow-up care, medications, Prescriptions given X 2, 13:58 Patient left the ED. mb9 Signatures: Ivy Sampson FNP-C FNP-Ckb Wilkerson, Mary Beth, RN RN mb9 Carol Ferguson
[2024-04-23] MEDS ORDERED: FAMOTIDINE 20 MG TAB ONE (13:52)
[2024-04-23] MEDS ORDERED: SMZ./TMP. 800/160 MG TABLET ONE (13:52)
[2024-04-23 14:32] VITALS: BP 155/98; TEMP 98.2; O2SAT 100
== END 2024-04-23 13:58 | disposition home or self-care (01) ==
LOC: ER 13:28
DX: R21 Rash and other nonspecific skin eruption (principal); L08.9 Local infection of the skin and subcutaneous tissue, unspecified
CPT/HCPCS: 99283

== ENCOUNTER 2024-04-24 19:27 | Emergency (ER) | payer BC ==
--- OUTSIDE RECORDS SUMMARY | 2024-04-24 19:30 | XMS REPORT | Continuity of Care Document ---
Author Name Unknown Address [address] [facility] [address]. [address] [place] [address] [facility] thconnect Address [address] [facility]. [address] [place] [address] Care Team Providers Care Flight Attendant Name Role Phone Janelle Sky Primary Care Physician Medications Ordered Medication Name Filled Medication Name [...] Vital Name Observation Time Observation Value Comments Niurka waterman BP Systolic 2024-04-16 11:14:00 120 mm[Hg] Tio Stephens BP Diastolic 2024-04-16 11:14:00 79 mm[Hg] Prashanth Stephens Weight Measured 2024-04-16 11:14:00 164.40 pounds John Stephens Height Measured 2024-04-16 11:14:00 61.00 inches John Stephens Body Temperature 2024-04-16 11:14:00 98.20 degrees John Stephens Heart Rate 2024-04-16 11:14:00 86.00 /min Vianey en F Angelo Respiratory Rate 2024-04-16 11:14:00 16.00 /min John [...] Angelo Body Temperature 2023-06-03 17:00:00 98.20 degrees Jhon F Angelo Heart Rate 2023-06-03 17:00:00 74.00 [...] Weight Measured 2022-01-15 10:06:00 152.60 pounds John Stephens Height Measured 2022-01-15 10:06:00 61.00 inches John Stephens Body Temperature 2022-01-15 10:06:00 98.40 degrees John Stephens Heart Rate 2022-01-15 10:06:00 78.00 /min Vianey Stephens Respiratory Rate 2022-01-15 10:06:00 16.00 /min John Stephens Encounters Start Date/Time End Date/Time Encounter Type Admission Type Attending [facility] Care Department Encounter ID Source 2024-04-16 11:07:21 2024-04-16 11:07:21 Outpatient [facility] [id number] John Stephens 2024-04-16 00:00:00 2024-04-16 00:00:00 Outpatient Visit [id number] John Stephens 2024-02-22 15:21:37 2024-02-22 15:21:37 Outpatient [facility] [id number] John Stephens 2024-02-22 00:00:00 2024-02-22 00:00:00 Outpatient Visit [id number] John Stephens 2023-09-09 14:31:10 2023-09-09 14:31:10 Outpatient [facility] [id number] John Stephens 2023-07-29 15:24:12 2023-07-29 15:24:12 Outpatient [facility] [id number] John Stephens 2023-06-03 16:50:39 2023-06-03 16:50:39 Outpatient [facility] [id number] John Stephens Results Test Description Test Time Test Comments Results Result Co mments Source HIV 1/2 4TH GEN, RFLX [id number] 05:19:16* Test Item Value Reference Range Interpretation Comme nts HIV 1/2 4TH GEN, RFLX CONF ( test code = 3514) NON-REACTIVE NON-REACTIVE HEPATITIS PANEL, [id number] 05:19:16* Test Item Value Reference Range Interpretation Comme nts HEPATITIS A IgM (test code = 12802) NON-REACTIVE NON-REACTIVE HEPATITIS B CORE IgM (test code = 4644) NON-REACTIVE NON-REACTIVE HEPATITIS B SURF AG (test code = 2739) NON-REACTIVE NON-REACTIVE HEPATITIS C ANTIBODY (test code = 4675) NON-REACTIVE NON-REACTIVE INTERPRETATION HEPATITIS A: (test code = 2552) (NOTE) Hepatitis A serology shows no evidence of acute hepatitis A. INTERPRETATION HEPATITIS B: (test code = 03738) (NOTE) Hepatitis B serology shows no evidence of acute hepatitis B andno indication of exposure to hepatitis B virus in the previous se eight months. INTERPRETATION HEPATITIS C: (test code = 21981) (NOTE) Hepatitis C serology shows no evidence of exposure to hepatitisC virus at this time. It can take up to 12 months after exposure tothe hepatitis C virus for antibodies to become detectable in the blood in certain patients. RPR REFLEX TO T. PALLIDUM - [id number] 04:41:52* Test Item Value Reference Range Interpretation Comme nts RPR (test code = 09698) NON-REACTIVE NON-REACTIVE RPR TITER (test code = 3500) NOT INDIC. TITER NOT INDIC. ACUTE HEPATITIS [id number] 00:00:00* Test Item Value Reference Range Interpretation Comme nts HEPATITIS A IgM (test code = 89963) NON-REACTIVE HEPATITIS B CORE IgM (test c ode = 4644) NON-REACTIVE HEPATITIS B SURF AG (test co de = 2739) NON-REACTIVE HEPATITIS C ANTIBODY (test c ode = 4675) NON-REACTIVE INTERPRETATION HEPATITIS A: (test code = 2552) (NOTE) INTERPRETATION HEPATITIS B: (test code = 90617) (NOTE) INTERPRETATION HEPATITIS C: (test code = 40283) (NOTE) John Gay AustinCT/NG, NAAT, [id number] 00:00:00* Test Item Value Reference Range Interpretation Comme nts CHLAMYDIA, NAAT, URINE (test code = 05374) NEGATIVE GONORRHEA, NAAT, URINE (test code = 80574) NEGATIVE John Gay AustinHIV 1/2 4TH GEN, RFLX [id number] 00:00:00* Test Item Value Reference Range Interpretation Comme nts HIV 1/2 4TH GEN, RFLX CONF ( test code = 3514) NON-REACTIVE John F AustinRPR REFLEX TO T. PALLIDUM - [id number] 00:00:00* Test Item Value Reference Range Interpretation Comme nts RPR (test code = 89123) NON-REACTIVE RPR TITER (test code = 3500) NOT INDIC. TITER John Gay AustinRPR REFLEX TO T. PALLIDUM - [id number] 00:00:00* Test Item Value Reference Range Interpretation Comme nts RPR (test code = 17664) NON-REACTIVE RPR TITER (test code = 3500) NOT INDIC. TITER John Gay AustinACUTE HEPATITIS [id number] 00:00:00* Test Item Value Reference Range Interpretation Comme nts HEPATITIS A IgM (test code = 21360) NON-REACTIVE HEPATITIS B CORE IgM (test c ode = 4644) NON-REACTIVE HEPATITIS B SURF AG (test co de = 2739) NON-REACTIVE HEPATITIS C ANTIBODY (test c ode = 4675) NON-REACTIVE INTERPRETATION HEPATITIS A: (test code = 2552) (NOTE) INTERPRETATION HEPATITIS B: (test code = 66939) (NOTE) INTERPRETATION HEPATITIS C: (test code = 14109) (NOTE) John Gay AustinCT/NG, TMA, [id number] 00:00:00* Test Item Value Reference Range Interpretation Comme nts CHLAMYDIA, NAAT, URINE (test code = 21610) NEGATIVE GONORRHEA, NAAT, URINE (test code = 69398) NEGATIVE John Gay AustinHIV 1/2 4TH GEN, RFLX [id number] 00:00:00* Test Item Value Reference Range Interpretation Comme nts HIV 1/2 4TH GEN, RFLX CONF ( test code = 3514) NON-REACTIVE John Gay AustinRPR REFLEX TO T. PALLIDUM - [id number] 00:00:00* Test Item Value Reference Range Interpretation Comme nts RPR (test code = 43062) NON-REACTIVE RPR TITER (test code = 3500) NOT INDIC. TITER John Gay AustinACUTE HEPATITIS [id number] 00:00:00* Test Item Value Reference Range Interpretation Comme nts HEPATITIS A IgM (test code = 73244) NON-REACTIVE HEPATITIS B CORE IgM (test c ode = 4644) NON-REACTIVE HEPATITIS B SURF AG (test co de = 2739) NON-REACTIVE HEPATITIS C ANTIBODY (test c ode = 4675) NON-REACTIVE INTERPRETATION HEPATITIS A: (test code = 2552) (NOTE) INTERPRETATION HEPATITIS B: (test code = 40793) (NOTE) INTERPRETATION HEPATITIS C: (test code = 31721) (NOTE) John StephensCT/NG, TMA, [id number] 00:00:00* Test Item Value Reference Range Interpretation Comme nts CHLAMYDIA, NAAT, URINE (test code = 40847) NEGATIVE GONORRHEA, NAAT, URINE (test code = 41056) NEGATIVE John StephensHIV 1/2 4TH GEN, RFLX [id number] 00:00:00* Test Item Value Reference Range Interpretation [...] Report (test code = EMBEDDED_PDF) PDF John StephensLIPID [id number] 06:07:58* Test Item Value Reference Range Interpretation Comme nts CHOLESTEROL (test code = 2210) 194 MG/DL <200 TRIGLYCERIDES (test code = 2232) 93 MG/DL <150 HDL CHOLESTEROL (test code = 2220) 87 MG/DL >39 CALC LDL CHOL (test code = 2237) 88 MG/DL <100 NOTE: CALCULATED LDL IS BASED ON JULISSA-LEVIN METHOD WHICHINCLUDES ADJUSTABLE TRIGLYCERIDE:VLDL CHOLESTEROL RATIO.THIS FACTOR VARIES BY MEASURED TRIGLYCERIDE AND NON-HDLCHOLESTEROL CONCENTRATIONS WITH INCREASED CALCULATED LDL SEENIN HIGHER TRIGLYCERIDE OR LOWER NON-HDL SPECIMENS. FOR MOREINFORMATION, SEE CLIENT ANNOUNCEMENT AT [email or web address] RISK RATIO LDL/HDL (test code = 2238) 1.01 RATIO <3.22 UNLESS OTHERW ISE INDICATED, ALL TESTING PERFORMED AT [facility] [address] [place] [address] RUBY RAILS DEVELOPER: CHERYL GRAY M.D. CLIA NUMBER [id number] [facility] [place]. [id number] COMPREHENSIVE METABOLIC [id number] 06:07:58* Test Item Value Reference Range Interpretation Comme nts GLUCOSE (test code = 2216) 91 MG/DL 70-99 BUN (test code = 2207) 14 MG/DL 6-20 CREATININE (test code = 2213) 0.81 MG/DL 0.60-1.30 eGFR (2020 CKD-EPI) (test code = 61011) 93 ML/MIN/1.73 >60 CALC BUN/CREAT (test code = 2234) 17 RATIO 6-28 SODIUM (test code = 2230) 138 MEQ/L 133-146 POTASSIUM (test code = 2227) 3.7 MEQ/L 3.5-5.4 CHLORIDE (test code = 2214) 105 MEQ/L 95-107 CARBON DIOXIDE (test code = 2205) 23 MEQ/L 19-31 CALCIUM (test code = 2208) 9.0 MG/DL 8.5-10.5 PROTEIN, TOTAL (test code = 2228) 7.0 G/DL 6.1-8.3 ALBUMIN (test code = 2200) 4.7 G/DL 3.5-5.2 CALC GLOBULIN (test code = 2240) 2.3 G/DL 1.9-3.7 CALC A/G RATIO (test code = 2233) 2.0 RATIO 1.0-2.6 BILIRUBIN, TOTAL (test code = 2206) 0.5 MG/DL See_Comment [Automated me ssage] The system which generated this result transmitted reference range: <=1.2. The reference range was not used to interpret this result as normal/abnormal. ALKALINE PHOSPHATASE (test code = 2203) 50 U/L 40-113 AST (test code = 8) 35 U/L 9-40 ALT (test code = 9) 53 U/L 5-40 H HEMOGLOBIN [id number] 03:16:33* Test Item Value Reference Range Interpretation Comme nts HEMOGLOBIN A1c (test code = 50047) 5.0 % 4.2-5.6 COMPREHENSIVE METABOLIC [id number] 00:00:00* Test Item Value Reference Range Interpretation Comme nts GLUCOSE (test code = 2217) 91 MG/DL BUN (test code = 2208) 14 MG/DL CREATININE (test code = 2214) 0.81 MG/DL eGFR (2020 CKD-EPI) (test co de = 79776) 93 ML/MIN/1.73 CALC BUN/CREAT (test code = [...] code = 2219) 53 U/L John StephensLIPID [id number] 00:00:00* Test Item Value Reference Range Interpretation Comme nts CHOLESTEROL (test code = 2210) 194 MG/DL TRIGLYCERIDES (test code = 2232) 93 MG/DL HDL CHOLESTEROL (test code = 2220) 87 MG/DL CALC LDL CHOL (test code = 2237) 88 MG/DL RISK RATIO LDL/HDL (test cod e = 2238) 1.01 RATIO John StephensHEMOGLOBIN [id number] 00:00:00* Test Item Value Reference Range Interpretation Comme nts HEMOGLOBIN A1c (test code = 54378) 5.0 % John StephensCOMPREHENSIVE METABOLIC [id number] 00:00:00* Test Item Value Reference Range Interpretation Comme nts GLUCOSE (test code = 2217) 91 MG/DL BUN (test code = 2208) 14 MG/DL CREATININE (test code = 2214) 0.81 MG/DL eGFR (2020 CKD-EPI) (test co de = 85722) 93 ML/MIN/1.73 CALC BUN/CREAT (test code = [...] code = 2219) 53 U/L John StephensLIPID [id number] 00:00:00* Test Item Value Reference Range Interpretation Comme nts CHOLESTEROL (test code = 2210) 194 MG/DL TRIGLYCERIDES (test code = 2232) 93 MG/DL HDL CHOLESTEROL (test code = 2220) 87 MG/DL CALC LDL CHOL (test code = 2237) 88 MG/DL RISK RATIO LDL/HDL (test cod e = 2238) 1.01 RATIO John StephensHEMOGLOBIN [id number] 00:00:00* Test Item Value Reference Range Interpretation Comme nts HEMOGLOBIN A1c (test code = 02933) 5.0 % John StephensSCR MAMM BILATERAL JARROD CAD [id number] 11:07:51 Name: Amanda : 1980 Sex: F - SCR MAMM BILATERAL JARROD CAD DIGITALBILATERAL FIRST EVER DIGITAL SCREENING MAMMOGRAM 3D/2D WITH CAD: 05/16/2022LINICAL: Asymptomatic. Digitalbreast tomosynthesis was performed in addition to routine CC and MLO views. Current mammographic images were evaluated by [employer] CAD (computer-aided detection) software. No prior exams [...] in one year. (05/17/2023) Rik Marie M.D. et/tamikarad:05/23/2022 11:07:51 Cardiovascular Sonographer: Yaima Pathak MM, [facility] Mammographyletter sent: BIRADS 1-2 Normal Mammogram BI-RADS: 2 BenignPAP TEST, THINPREP, [id number] 12:56:42* Test Item Value Reference Range Interpretation Comme nts SOURCE: (test code = 8001) Cervical/Endoc ervical SLIDES: (test code = 8011) 1 LMP: (test code = 8021) 04/04/2022 SPECIMEN ADEQUACY: (test code = 77610) (NOTE) Satisfactory for evaluation. Endocervical cells/transformation zone component not identified. INTERPRETATION: (test code = 65874) NILM/NO EPITH. ABNORMALITY;SE E BELOW ---- NEGATIVE FOR INTRAEPITHELIAL LESION OR MALIGNANCY (NILM) - SALES AMBASSADOR : (test code = 8101) [facility] LOCATION: (test code = 90369) (NOTE) Specimens proces sed and interpreted at [facility], [address] [place] [address], , CLIA: [id number] CPT: (test code = 8140) (NOTE) 22851 UNLESS OTH ERWISE INDICATED, COMPUTER AIDED AND SALES AMBASSADOR SCREENING PERFORMED. The Pap test is a screening test with an inherent, but low probability of error. Your patient should be reminded to consult you immediately if she experiences any suspicious signs or symptoms, regardless of her Pap test result. An alternate report format containing images or consolidated prior Pap history is available as applicable. PAP TEST, THINPREP, [id number] 00:00:00* Test Item Value Reference Range Interpretation Comme nts SOURCE: (test code = 8001) Cervical/Endocervical SLIDES: (test code = 8011) 1 LMP: (test code = 8021) 04/04/2022 SPECIMEN ADEQUACY: (test code = 38748) (NOTE) INTERPRETATION: (test code = 79152) NILM/NO EPITH. ABNORMALITY;SEE BELOW SALES AMBASSADOR: (test code = 8101) [facility] LOCATION: (test code = 62241) (NOTE) CPT: (test code = 8140) (NOTE) John StephensPAP TEST, THINPREP, [id number] 00:00:00* Test Item Value Reference Range Interpretation Comme nts SOURCE: (test code = 8001) Cervical/Endocervical SLIDES: (test code = 8011) 1 LMP: (test code = 8021) 04/04/2022 SPECIMEN ADEQUACY: (test code = 56840) (NOTE) INTERPRETATION: (test code = 18111) NILM/NO EPITH. ABNORMALITY;SEE BELOW SALES AMBASSADOR: (test code = 8101) [facility] LOCATION: (test code = 30840) (NOTE) CPT: (test code = 8140) (NOTE) John Gay AustinCT/NG, NAAT, [id number] 18:31:17* Test Item Value Reference Range Interpretation Comme nts GONORRHEA, NAAT (test code = 72708) NEGATIVE NEGATIVE IMPORTANT NO IMAN: SEE ANNOUNCEMENT AT [email or web address] Note: Assay methodology is nucleic acid amplification by boatbuilder apprentice wood mediated amplification (TMA) utilizing the Aptima Combo 2 Assay. CHLAMYDIA, NAAT (test code = 92563) NEGATIVE NEGATIVE IMPORTANT NO IMAN: SEE ANNOUNCEMENT AT [email or web address] Note: Assay methodology is nucleic acid amplification by boatbuilder apprentice wood mediated amplification (TMA) utilizing the Aptima Combo 2 Assay. HPV HIGH RISK WITH GENOTYPE, [id number] 14:47:45* Test Item Value Reference Range Interpretation Comme nts HPV HIGH RISK INTERP (test code = 72122) NEGATIVE NEGATIVE HPV 16 (test code = 10505) NEGATIVE HPV 18 (test code = 69561) NEGATIVE HPV, HR, OTHER GENOTYPES (test code = 32249) NEGATIVE Testing methodol ogy is real-time PCR [...] error. UNLESS OTHERWISE INDICATED, ALL TESTING PERFORMED [employer] [facility] [address] [place] [address] RUBY RAILS DEVELOPER: MARIA CASTRO M.D. CLIA NUMBER [id number] [place]. [id number] VAGINAL PATHOGENS DNA [id number] 13:21:53* Test Item Value Reference Range Interpretation Comme nts SANDIE SPECIES (test code = 47693) NEGATIVE NEGATIVE G. VAGINALIS (test code = 93506) NEGATIVE NEGATIVE T. VAGINALIS (test code = 19141) NEGATIVE NEGATIVE UNLESS OTHERWISE INDICATED, ALL TESTING PERFORMED [employer] [address] [place] [address] RUBY RAILS DEVELOPER: MARIA CASTRO M.D. CLIA NUMBER [id number] [place]. [id number] 03:55:39* Test Item Value Reference Range Interpretation Comme nts RPR RESULT (test code = 3501) NON-REACTIVE NON-REACTIVE RPR TITER (test code = 3500) NOT INDIC. TITER NOT INDIC. FSH + LH [id number] 03:31:03* Test Item Value Reference Range Interpretation Comme [facility] FOLLICLE STIM HORMONE (test code = 2700) [...] 7.7-58.5 IU/L HIV 1/2 4TH GEN, RFLX [id number] 03:25:43* Test Item Value Reference Range Interpretation Comme [facility] HIV 1/2 4TH GEN, RFLX CONF ( test code = 3514) NON-REACTIVE NON-REACTIVE HEPATITIS PANEL, [id number] 03:25:43* Test Item Value Reference Range Interpretation Comme [facility] HEPATITIS A IgM (test code = 91401) NON-REACTIVE NON-REACTIVE HEPATITIS B CORE IgM (test code = 4644) NON-REACTIVE NON-REACTIVE HEPATITIS B SURF AG (test code = 2739) NON-REACTIVE NON-REACTIVE HEPATITIS C ANTIBODY (test code = 4675) NON-REACTIVE NON-REACTIVE INTERPRETATION HEPATITIS A: (test code = 2552) (NOTE) Hepatitis A serology shows no evidence of acute hepatitis A. INTERPRETATION HEPATITIS B: (test code = 90427) (NOTE) Hepatitis B serology shows no evidence of acute hepatitis B andno indication of exposure to hepatitis B virus in the previous se eight months. INTERPRETATION HEPATITIS C: (test code = 88886) (NOTE) Hepatitis C serology shows no evidence of exposure to hepatitisC virus at this time. It can take up to 12 months after exposure tothe hepatitis C virus for antibodies to become detectable in the blood in certain patients. HPV HIGH RISK WITH GENOTYPE, [id number] 00:00:00* Test Item Value Reference Range Interpretation Comme nts HPV HIGH RISK INTERP (test c ode = 86617) NEGATIVE HPV 16 (test code = 21480) NEGATIVE HPV 18 (test code = 84205) NEGATIVE HPV, HR, OTHER GENOTYPES (te st code = 76601) NEGATIVE John StephensACUTE HEPATITIS [id number] 00:00:00* Test Item Value Reference Range Interpretation Comme nts HEPATITIS A IgM (test code = 81711) NON-REACTIVE HEPATITIS B CORE IgM (test c ode = 4644) NON-REACTIVE HEPATITIS B SURF AG (test co de = 2739) NON-REACTIVE HEPATITIS C ANTIBODY (test c ode = 4675) NON-REACTIVE INTERPRETATION HEPATITIS A: (test code = 2552) (NOTE) INTERPRETATION HEPATITIS B: (test code = 90880) (NOTE) INTERPRETATION HEPATITIS C: (test code = 91819) (NOTE) John StephensGC AND CHLAMYDIA, AMPLIFIED, [id number] 00:00:00* Test Item Value Reference Range Interpretation Comme nts GONORRHEA, NAAT (test code = 57158) NEGATIVE CHLAMYDIA, NAAT (test code = 13048) NEGATIVE John StephensFSH + LH [id number] 00:00:00* Test Item Value Reference Range Interpretation Comme nts FOLLICLE STIM HORMONE (test code = 2700) 2.8 IU/L LUTEINIZING HORMONE (test co de = 2776) 2.3 IU/L John StephensVAGINAL PATHOGENS DNA [id number] 00:00:00* Test Item Value Reference Range Interpretation Comme nts SANDIE SPECIES (test code = 40033) NEGATIVE G. VAGINALIS (test code = 61338) NEGATIVE T. VAGINALIS (test code = 16125) NEGATIVE John StephensHIV AB/AG COMBO RFLX [id number] 00:00:00* Test Item Value Reference Range Interpretation Comme nts HIV 1/2 4TH GEN, RFLX CONF ( test code = 3514) NON-REACTIVE John StephensHPV HIGH RISK WITH GENOTYPE, [id number] 00:00:00* Test Item Value Reference Range Interpretation Comme tabby HPV HIGH RISK INTERP (test c ode = 57691) NEGATIVE HPV 16 (test code = 55519) NEGATIVE HPV 18 (test code = 79982) NEGATIVE HPV, HR, OTHER GENOTYPES (te st code = 23474) NEGATIVE John [id number] 00:00:00* Test Item Value Reference Range Interpretation Comme nts RPR RESULT (test code = 3501) NON-REACTIVE RPR TITER (test code = 3500) NOT INDIC. TITER John StephensACUTE HEPATITIS [id number] 00:00:00* Test Item Value Reference Range Interpretation Comme nts HEPATITIS A IgM (test code = 01580) NON-REACTIVE HEPATITIS B CORE IgM (test c ode = 4644) NON-REACTIVE HEPATITIS B SURF AG (test co de = 2739) NON-REACTIVE HEPATITIS C ANTIBODY (test c ode = 4675) NON-REACTIVE INTERPRETATION HEPATITIS A: (test code = 2552) (NOTE) INTERPRETATION HEPATITIS B: (test code = 20136) (NOTE) INTERPRETATION HEPATITIS C: (test code = 35014) (NOTE) John StephensGC AND CHLAMYDIA, AMPLIFIED, [id number] 00:00:00* Test Item Value Reference Range Interpretation Comme nts GONORRHEA, NAAT (test code = 66639) NEGATIVE CHLAMYDIA, NAAT (test code = 91044) NEGATIVE John StephensFSH + LH [id number] 00:00:00* Test Item Value Reference Range Interpretation Comme nts FOLLICLE STIM HORMONE (test code = 2700) 2.8 IU/L LUTEINIZING HORMONE (test co de = 2776) 2.3 IU/L John StephensVAGINAL PATHOGENS DNA [id number] 00:00:00* Test Item Value Reference Range Interpretation Comme tabby SANDIE SPECIES (test code = 87112) NEGATIVE G. VAGINALIS (test code = 15443) NEGATIVE T. VAGINALIS (test code = 27127) NEGATIVE John StephensHIV AB/AG COMBO RFLX [id number] 00:00:00* Test Item Value Reference Range Interpretation Comme nts HIV 1/2 4TH GEN, RFLX CONF ( test code = 3514) NON-REACTIVE John Gay [id number] 00:00:00* Test Item Value Reference Range Interpretation Comme nts RPR RESULT (test code = 3501) NON-REACTIVE RPR TITER (test code = 3500) NOT INDIC. TITER John Gay AustinLIPID [id number] 05:59:01* Test Item Value Reference Range Interpretation [...] SPECIMENS. FOR MOREINFORMATION, SEE CLIENT ANNOUNCEMENT AT [email or web address] [email or web address] RATIO LDL/HDL (test code = 2238) 1.64 RATIO <3.22 COMPREHENSIVE METABOLIC [id number] 05:59:01* Test Item Value Reference Range Interpretation Comme nts GLUCOSE (test code = 2217) 107 MG/DL 70-99 H BUN (test code = 2208) 13 MG/DL 6-20 CREATININE (test code = 2214) 0.68 MG/DL 0.60-1.30 eGFR (2020 CKD-EPI) (test code = 08128) 112 ML/MIN/1.73 >60 CALC BUN/CREAT (test code = 2235) 19 RATIO 6-28 SODIUM (test code = 2231) 141 MEQ/L 133-146 POTASSIUM (test code = 2228) 4.4 MEQ/L 3.5-5.4 CHLORIDE (test code = 2215) 102 MEQ/L 95-107 CARBON DIOXIDE (test code = 2206) 22 MEQ/L 19-31 CALCIUM (test code = 2209) 9.8 MG/DL 8.5-10.5 PROTEIN, TOTAL (test code = 2228) 8.3 G/DL 6.1-8.3 ALBUMIN (test code = [...] as normal/abnormal. ALKALINE PHOSPHATASE (test code = 2204) 61 U/L 40-113 AST (test code = 2218) 44 U/L 9-40 H ALT (test code = 2219) 68 U/L 5-40 H UNLESS OTHERWISE INDICATED, ALL TESTING PERFORMED [facility] [employer] [employer] [address] [place] [address] RUBY RAILS DEVELOPER: MARIA CASTRO M.D. CLIA NUMBER [id number] [facility] [place]. [id number] HEMOGLOBIN [id number] 04:03:58* Test Item Value Reference Range Interpretation Comme nts HEMOGLOBIN A1c (test code = 05131) 5.4 % 4.2-5.6 COMPREHENSIVE METABOLIC [id number] 00:00:00* Test Item Value Reference Range Interpretation Comme nts GLUCOSE (test code = 2217) 107 MG/DL BUN (test code = 2208) 13 MG/DL CREATININE (test code = 2214) 0.68 MG/DL eGFR (2020 CKD-EPI) (test code = 72653) 112 ML/MIN/1.73 CALC BUN/CREAT (test code = [...] code = 2219) 68 U/L John StephensHEMOGLOBIN [id number] 00:00:00* Test Item Value Reference Range Interpretation Comme nts HEMOGLOBIN A1c (test code = 46624) 5.4 % John Gay AustinLIPID [id number] 00:00:00* Test Item Value Reference Range Interpretation Comme nts CHOLESTEROL (test code = 2210) 228 MG/DL TRIGLYCERIDES (test code = 2232) 178 MG/DL HDL CHOLESTEROL (test code = 2220) 75 MG/DL CALC LDL CHOL (test code = 2237) 123 MG/DL RISK RATIO LDL/HDL (test cod e = 2238) 1.64 RATIO John StephensCOMPREHENSIVE METABOLIC [id number] 00:00:00* Test Item Value Reference Range Interpretation Comme nts GLUCOSE (test code = 2217) 107 MG/DL BUN (test code = 2208) 13 MG/DL CREATININE (test code = 2214) 0.68 MG/DL eGFR (2020 CKD-EPI) (test code = 12365) 112 ML/MIN/1.73 CALC BUN/CREAT (test code = [...] code = 2219) 68 U/L John StephensHEMOGLOBIN [id number] 00:00:00* Test Item Value Reference Range Interpretation Comme tabby HEMOGLOBIN A1c (test code = 76002) 5.4 % John Gay AustinLIPID [id number] 00:00:00* Test Item Value Reference Range Interpretation Comme nts CHOLESTEROL (test code = 2210) 228 MG/DL TRIGLYCERIDES (test code = 2232) 178 MG/DL HDL CHOLESTEROL (test code = 2220) 75 MG/DL CALC LDL CHOL (test code = 2237) 123 MG/DL RISK RATIO LDL/HDL (test cod e = 2238) 1.64 RATIO John Deidra Angelo Notes Date/Time Note Provider Source 2024-04-16 00:00:00 [id number] T00:00:00+ + +| Plan Activity | Plan Date |+ =========+ +| weight and height disproportionate | 2022-01-15 || Overweight | || Therapeutic lifestyle changes required | || RTC for [employer], [employer] | |+ ---------+ +| Daily activity recommended. 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
[2024-04-24] MEDS ORDERED: METHYLPREDNISOLONE 125 MG INJ ONE (19:52)
[2024-04-24] MEDS ORDERED: CLINDAMYCIN 900MG/D5W 900 MG/50 ML IVPB IV ONE (19:53)
[2024-04-24] MEDS ORDERED: NA CHLORIDE 0.9% 1,000 ML ONE (19:53)
[2024-04-24] MEDS ORDERED: DIPHENHYDRAMINE 50 MG/ML VIAL ONE (19:53)
[2024-04-24 20:39] LABS: Absolute Lymphocytes (CBC) 1.4 K/uL (0.7-4.9); Absolute Monocytes 0.2 K/uL (0.1-1.3); Absolute Neutrophil 2.9 K/uL (1.8-8.0); Basophils % 0.3 % (0-1.3); Hematocrit 41.6 % (36.0-45.0); Hemoglobin 14.1 g/dL (12.0-15.0); MCH 33.1 pg (27.0-35.0); MCHC 33.9 g/dL (32.0-36.0); MCV 97.7 fL (80-100); Monocytes % 5.1 % (3.3-12.3); Neutrophils % 63.6 % (41.7-73.7); Platelets 179 thou/uL (152-406); RBC Red Blood Cell Count 4.26 M/uL (3.86-4.86); Red Cell Distribution Width 12.8 % (12.1-15.2)
--- NOTE | 2024-04-24 20:40 | RAD REPORT ---
EXAM DESCRIPTION: CT - Lower Ext Wo Con W/ Mpr - 04/24/2024 8:04 pm CLINICAL HISTORY: Right leg pain. Cellulitis. Necrotizing fasciitis COMPARISON: None. TECHNIQUE: Computed axial tomography obtained from above the right hip to the right knee. IV contras t not given. All CT scans are performed using dose optimization technique as appropriate and may include automated exposure control or mA/KV adjustment according to patient size. FINDINGS: Diffuse edema is present within the subcutaneous tissues of the medial aspect of the righ t thigh and throughout the right leg to the level of the knee. Skin thickening is present. No fluid-filled abscess seen. Air within the tissues is not present. No gross abnormality of musculature. Thickening of the superficial fascia medially is present. Thickening of the deep fascia is not presen t IMPRESSION: Diffuse edema is present within the subcutaneous tissues of the medial aspect of the r ight thigh and throughout the right leg to the level of the knee. These findings presumably represent a cellulitis No evidence of an abscess or air forming infection . Thickening of the superficial fascia may indicate a non necrotizing fasciitis. No specific evidence o f a necrotizing fasciitis. If clinically indicated further evaluation with MRI could be obtained
[2024-04-24 20:42] LABS: PT Prothrombin Time 10.7 SECONDS (9.4-12.5); PTT, Activated Partial Thromb 27.2 SECONDS (24.3-36.9); Protime INR 0.97
[2024-04-24 20:52] LABS: Albumin 3.9 g/dL (3.4-5.0); Albumin/Globulin Ratio 1.1 (1.1-1.8); Anion Gap 6.5 mEq/L (5.0-15.0); Bilirubin Total 0.6 mg/dL (0.2-1.0); Globulin 3.5 g/dL (2.3-3.5); Potassium 3.5 mEq/L (3.5-5.1); Protein, Total 7.4 g/dL (6.4-8.2)
--- NOTE | 2024-04-24 21:08 | EDPHYS ---
Physician Documentation [facility] Name: Krupa Farmer Age: 44 yrs Sex: Female : 1980 Arrival Date: 04/24/2024 Time: 19:27 Bed 18 Private MD: ED Physician Matthias De La Torre HPI: 04/24 20:22 This 44 yrs old Female presents to ER via Ambulatory with complaints of sb4 Allergic Reaction, Rash. 21:01 Patient states that she noticed a rash on her inner thigh about 1 week ago. She went to 4 the [facility] and was diagnosed with ringworm and told to get tfgi-cue-dizxkpe antifungal cream. She had been using that without any improvement. She came here yesterday and was diagnosed with cellulitis and prescribed Bactrim and Pepcid. States that since then, she has broken out in a widespread rash and her initial rash on her leg has not improved. She denies any fever or chills. Historical: - Allergies: 20:22 Sulfa (Sulfonamide Antibiotics); sb4 - PMHx: 19:43 None; rs5 - PSHx: 19:43 chin; rs5 - Immunization history:: Adult Immunizations up to date. - Infectious Disease History:: Denies. - Social history:: Smoking status: Patient denies any tobacco usage or history of. ROS: 21:01 Constitutional: Negative for fever, chills, and weight loss, sb4 21:01 Skin: Positive for cellulitis, rash, 21:01 All other systems are negative, Exam: 21:01 Constitutional: This is a well developed, well nourished patient who is awake, alert, sb4 and in no acute distress. Head/Face: Normocephalic, atraumatic. Eyes: Extra-ocular motions intact. Periorbital areas with no swelling, redness, or edema. ENT: Mucous membranes moist. 21:01 Skin: cellulitis, that is moderate, irregular, on the medial aspect of right thigh, rash a mild rash is noted, drug rash, and is diffusely located, Vital Signs: 19:39 BP 144 / 94; Pulse 103; Resp 17; Pulse Ox 99% on R/A; rs5 19:40 BP 144 / 94; Pulse 88; Resp 18; Temp 98.2(O); Pulse Ox 98% on R/A; Weight 72.57 kg; oe Height 5 ft. 1 in. ; 20:44 BP 115 / 63; Pulse 92; Pulse Ox 98% on R/A; MAP 80 mmHg; Pain 0/10; tm6 21:19 BP 127 / 79; Pulse 72; Resp 18; Temp 97.3(TE); Pulse Ox 100% on R/A; Pain 0/10; tm6 19:40 Body Mass Index 30.23 (72.57 kg, 154.94 cm) oe 20:44 Pain Scale: Adult tm6 21:19 Pain Scale: Adult tm6 MDM: 19:37 Patient medically screened. sb4 21:06 Data reviewed: vital signs, nurses notes, lab test result(s), radiologic studies, and sb4 as a result, I will discharge patient. Counseling: I had a detailed discussion with the patient and/or guardian regarding the historical points, exam findings, and any diagnostic results supporting the discharge/admit diagnosis, lab results, radiology results, to return to the emergency department if symptoms worsen or persist or if there are any questions or concerns that arise at home. 04/24 19:46 Order name: Blood Culture Adult (2) sb4 04/24 19:46 Order name: CBC with Diff; Complete Time: 21:03 sb4 04/24 19:46 Order name: CMP; Complete Time: 20:56 sb4 04/24 19:46 Order name: Lactate w/ 2H reflex if indic.; Complete Time: 20:56 sb4 04/24 19:46 Order name: Protime (+inr); Complete Time: 20:42 sb4 04/24 19:46 Order name: Ptt, Activated; Complete Time: 20:42 sb4 04/24 19:50 Order name: Lower Ext Wo Con W/ Mpr; Complete Time: 20:42 EDMS 04/24 19:46 Order name: IV Saline Lock - Large Bore; Complete Time: 20:44 sb4 04/24 19:46 Order name: Labs collected and sent; Complete Time: 20:44 sb4 Administered Medications: 20:43 Drug: NS 0.9% IV 1000 ml IV at 1 bolus Per protocol; 1000 mL bolus Route: IV; Rate: 1 tm6 bolus; Site: right antecubital; 21:21 Follow up: Response: No adverse reaction; IV Status: Completed infusion; IV Intake: tm6 600ml 20:43 Drug: diphenhydrAMINE IVP 25 mg IVP once Route: IVP; Site: right antecubital; tm6 20:43 Drug: MethylPrednisoLONE IVP 60 mg IVP once Route: IVP; Site: right antecubital; tm6 20:44 Drug: Clindamycin IVPB 900 mg IVPB once over 30 mins; (mix in 50 mL) Route: IVPB; tm6 Infused Over: 30 mins; Site: right antecubital; 21:21 Follow up: Response: No adverse reaction; IV Status: Completed infusion tm6 Disposition: 23:59 Co-signature as Attending Physician, Matthias De La Torre MD I reviewed the patient's care rt provided by the Advanced Practice Provider and agree with the diagnosis and treatment plan. Disposition Summary: 04/24/24 21:08 Discharge Ordered Notes: Location: Home sb4 Problem: an ongoing problem sb4 Symptoms: are unchanged sb4 Condition: Stable sb4 Diagnosis - Cellulitis of right lower limb sb4 - Adverse effect of other drugs, medicaments and biological substances sb4 - Rash and other nonspecific skin eruption sb4 Followup: sb4 - With: Emergency Department - When: As needed - Reason: Fever > 102 F, Trouble breathing, Worsening of condition Discharge Instructions: - Discharge Summary Sheet sb4 - Cellulitis, Adult sb4 - Drug Rash sb4 Forms: - Antibiotic Education sb4 - Patient Portal Instructions sb4 - Leadership Thank You Letter sb4 - Work release form tm6 Prescriptions: - Cephalexin 500 mg Oral Capsule - take 1 capsule ORAL route every 8 hours for 10 days; 30 capsule; Refills: 0, sb4 Product Selection Permitted - Clindamycin HCl 300 mg Oral Capsule - take 1 capsule ORAL route every 6 hours for 10 days; 40 capsule; Refills: 0, sb4 Product Selection Permitted - Medrol (Gaurang) 4 mg Oral Tablets, Dose Pack - take 1 tablet ORAL route as directed - follow package instructions; 1 packet; sb4 Refills: 0, Product Selection Permitted Signatures: Dispatcher [employer] Michelle Bradford PA-C PAJesus sb4 Matthias De La Torre MD MD rt Wilmer Patel RN RN rs5 Chandler Ocampo RN RN tm6 Corrections: (The following items were deleted from the chart) 19:47 19:47 BLOOD CULTURE*+BA.LAB.BRZ ordered. EDMS EDMS 19:47 19:47 CBC+H.LAB.BRZ ordered. EDMS EDMS 19:47 19:47 COMPREHENSIVE METABOLIC PANEL+C.LAB.BRZ ordered. EDMS EDMS :47 19:47 LACTATE+C.LAB.BRZ ordered. EDMS EDMS 19:47 19:47 PROTIME (+INR)+COAG.LAB.BRZ ordered. EDMS EDMS :47 19:47 PTT, ACTIVATED+COAG.LAB.BRZ ordered. EDMS EDMS 20:23 19:43 Allergies: Possibly bactrim or famotadine; rs5 sb4
--- NOTE | 2024-04-24 21:08 | ER ---
Nurse's Notes [facility] Name: Krupa Farmer Age: 44 yrs Sex: Female : 1980 Arrival Date: 04/24/2024 Time: 19:27 Bed 18 Private MD: Diagnosis: Cellulitis of right lower limb;Adverse effect of other drugs, medicaments and biological substances;Rash and other nonspecific skin eruption Presentation: 04/24 19:39 Chief complaint: Patient states: seen here yesterday for a rash to her inner thigh, rs5 discharged home with Bactrim and Famotidine. New rash has emerged to chest, back, legs, and arms bilat. Denies chest pain or SOB. Coronavirus screen: At this time, the client does not indicate any symptoms associated with coronavirus-19. Ebola Screen: No symptoms or risks identified at this time. Onset: The symptoms/episode began/occurred today. Anaphylaxis evaluation, rash all over. Initial Sepsis Screen: Does the patient meet any 2 criteria? HR > 90 bpm. Does the patient have a suspected source of infection? No. Patient's initial sepsis screen is negative. Risk Assessment: Do you want to hurt yourself or someone else? Patient reports no desire to harm self or others. Onset of symptoms was April 24, 2024. 19:39 Method Of Arrival: Ambulatory rs5 19:39 Acuity: JAIMEE 3 rs5 Triage Assessment: 21:20 General: Behavior is calm, cooperative. tm6 Historical: - Allergies: 20:22 Sulfa (Sulfonamide Antibiotics); sb4 - PMHx: 19:43 None; rs5 - PSHx: 19:43 chin; rs5 - Immunization history:: Adult Immunizations up to date. - Infectious Disease History:: Denies. - Social history:: Smoking status: Patient denies any tobacco usage or history of. Screenin:44 [facility] ED Fall Risk Assessment (Adult) History of falling in the last 3 months, tm6 including since admission No falls in past 3 months (0 pts) Confusion or Disorientation No (0 pts) Intoxicated or Sedated No (0 pts) Impaired Gait No (0 pts) Mobility Assist Device Used No (0 pt) Altered Elimination No (0 pt) Score/Fall Risk Level 0 - 2 = Low Risk Oriented to surroundings, Maintained a safe environment, Educated pt \T\ family on fall prevention, incl call for assistance when getting out of bed. Abuse screen: Denies threats or abuse. Denies injuries from another. Nutritional screening: No deficits noted. Tuberculosis screening: No symptoms or risk factors identified. Assessment: 19:44 General: Appears in no apparent distress. uncomfortable. Pain: Complains of pain in tm6 medial aspect of right thigh Pain currently is 2 out of 10 on a pain scale. Quality of pain is described as itching. Neuro: Level of Consciousness is awake, alert, obeys commands, Oriented to person, place, time, situation. Cardiovascular: Patient's skin is warm and dry. Respiratory: Airway is patent Respiratory effort is even, unlabored, Respiratory pattern is regular, symmetrical, Breath sounds are clear. GI: Abdomen is flat, non-distended. : No signs and/or symptoms were reported regarding the genitourinary system. EENT: No signs and/or symptoms were reported regarding the EENT system. Derm: Wound noted medial aspect of right thigh Wound is red, layer of epidermis off Rash noted that is itchy, papular, raised. Musculoskeletal: No signs and/or symptoms reported regarding the musculoskeletal system. 20:46 Reassessment: Patient appears in no apparent distress at this time. Patient and/or tm6 family updated on plan of care and expected duration. Pain level reassessed. Patient is alert, oriented x 3, equal unlabored respirations, skin warm/dry/pink. 21:19 Reassessment: Patient appears in no apparent distress at this time. Patient and/or tm6 family updated on plan of care and expected duration. Pain level reassessed. Patient is alert, oriented x 3, equal unlabored respirations, skin warm/dry/pink. Vital Signs: 19:39 BP 144 / 94; Pulse 103; Resp 17; Pulse Ox 99% on R/A; rs5 19:40 BP 144 / 94; Pulse 88; Resp 18; Temp 98.2(O); Pulse Ox 98% on R/A; Weight 72.57 kg; oe Height 5 ft. 1 in. ; 20:44 BP 115 / 63; Pulse 92; Pulse Ox 98% on R/A; MAP 80 mmHg; Pain 0/10; tm6 21:19 BP 127 / 79; Pulse 72; Resp 18; Temp 97.3(TE); Pulse Ox 100% on R/A; Pain 0/10; tm6 19:40 Body Mass Index 30.23 (72.57 kg, 154.94 cm) oe 20:44 Pain Scale: Adult tm6 21:19 Pain Scale: Adult tm6 ED Course: 19:29 Patient arrived in ED. mr 19:32 Michelle Flores PA-C is PHCP. sb4 19:32 Matthias De La Torre MD is Attending Physician. sb4 19:39 Chandler Ocampo, LION is Primary Nurse. tm6 19:43 Triage completed. rs5 19:44 Patient has correct armband on for positive identification. Bed in low position. Call tm6 light in reach. Side rails up X 1. Provided Education on: use of call hunter. Client placed on continuous cardiac and pulse oximetry monitoring. NIBP monitoring applied. Pulse ox on. NIBP on. Door closed. Noise minimized. Warm blanket given. Pillow given. 19:44 Arm band placed on right wrist. tm6 20:06 Lower Ext Wo Con W/ Mpr In Process Unspecified. EDMS 20:14 Inserted saline lock: 20 gauge in right antecubital area, using aseptic technique. oe Blood collected. 20:14 First set of blood cultures drawn by me. oe 20:35 Second set of blood cultures drawn by me. oe 20:46 CBC with Diff Sent. oe 20:46 CMP Sent. oe 20:46 Lactate w/ 2H reflex if indic. Sent. oe 20:46 Blood Culture Adult (2) Sent. oe 21:20 No provider procedures requiring assistance completed. IV discontinued, intact, tm6 bleeding controlled, No redness/swelling at site. Pressure dressing applied. Administered Medications: 20:43 Drug: NS 0.9% IV 1000 ml IV at 1 bolus Per protocol; 1000 mL bolus Route: IV; Rate: 1 tm6 bolus; Site: right antecubital; 21:21 Follow up: Response: No adverse reaction; IV Status: Completed infusion; IV Intake: tm6 600ml 20:43 Drug: diphenhydrAMINE IVP 25 mg IVP once Route: IVP; Site: right antecubital; tm6 20:43 Drug: MethylPrednisoLONE IVP 60 mg IVP once Route: IVP; Site: right antecubital; tm6 20:44 Drug: Clindamycin IVPB 900 mg IVPB once over 30 mins; (mix in 50 mL) Route: IVPB; tm6 Infused Over: 30 mins; Site: right antecubital; 21:21 Follow up: Response: No adverse reaction; IV Status: Completed infusion tm6 Medication: 19:44 VIS not applicable for this client. tm6 Intake: 21:21 IV: 600ml; Total: 600ml. tm6 Outcome: 21:08 Discharge ordered by . sb4 21:20 Discharged to home ambulatory, tm6 21:20 Condition: stable 21:20 Discharge instructions given to patient, Instructed on discharge instructions, follow up and referral plans. medication usage, Demonstrated understanding of instructions, follow-up care, medications, Prescriptions given X 2, 21:20 Patient left the ED. tm6 Signatures: Dispatcher [employer] EDMS Astrid Billingsley, Oli Reg mr Rach, Michelle Frausto, PA-C PA-C sb4 Wilmer Paetl, RN RN rs5 Chandler Ocampo RN RN tm6 Corrections: (The following items were deleted from the chart) 19:50 19:44 Client placed on continuous cardiac and pulse oximetry monitoring. NIBP tm6 monitoring applied. air sampling and monitoring on. Pulse ox on. NIBP on. tm6 20:23 19:43 Allergies: Possibly bactrim or famotadine; rs5 sb4
[2024-04-24 21:29] VITALS: BP 115/63; TEMP 98.2; O2SAT 98
== END 2024-04-24 21:20 | disposition home or self-care (01) ==
LOC: ER 19:27
DX: L03.115 Cellulitis of right lower limb (principal); T50.995A Adverse effect of other drugs, medicaments and biological substances, initial encounter; Z88.2 Allergy status to sulfonamides
CPT/HCPCS: 96365; 87040 ×2; 85025; 36415; 85610; 83605; 85730; 80053; 73700; 76377; 96375; 99284; J1200; J2919; J7030